=== PATIENT | female | born 1940 | race Caucasian/White ===

== ENCOUNTER 2018-02-01 03:20 | Emergency (ER) | payer MEDICARE, BC ==
[2018-02-01] MEDS ORDERED: KETOROLAC 30 MG/ML 1 ML VIAL IVP STA (03:39)
[2018-02-01] MEDS ORDERED: SODIUM CHLORIDE 0.9% 500 ML 500 ML IV STA (03:39)
[2018-02-01] MEDS ORDERED: MORPHINE SULFATE 2 MG/ML SYRINGE IVP STA (03:41)
[2018-02-01] MEDS ORDERED: ONDANSETRON 4 MG/2 ML VIAL IVP STA (03:41)
--- NOTE | 2018-02-01 03:43 | ED ---
General Adult HPI - General Chief complaint: Urogenital Stated complaint: Back pain Source: patient Mode of arrival: wheelchair Limitations: no limitations - History of Present Illness Initial comments: 77-year-old female patient presents to the emergency department today for evaluation of right flank pain. Patient states that the pain started earlier in the day however worsened this morning. The patient states the pain is a sharp stabbing pain. States it worsens with movement and when taking deep breaths. Denies any radiation of the pain to her abdomen. Denies any nausea, vomiting, constipation, diarrhea, hematuria, dysuria, urinary urgency. States that she does urinate frequently. Denies any history of similar pain or kidney stones. Patient denies any recent rash, fever, chills, shortness breath, chest pain, numbness, tingling, dizziness, weakness, headache, visual changes, or any other complaints. - Related Data Home Medications Medication Instructions Recorded Confirmed Albuterol Sulfate [Proair Hfa] 1 - 2 puff INHALATION RT-Q6H PRN 02/11/16 HYDROcodone/APAP 5-325MG [[place] 1 - 2 tab PO QID PRN 02/11/16 02/11/16 5-325] Levothyroxine Sodium 75 mcg PO QAM 02/11/16 02/11/16 Simvastatin 10 mg PO HS 02/11/16 02/11/16 Previous Rx's Medication Instructions Recorded Cephalexin [Keflex] 500 mg PO Q8HR #30 cap 02/01/18 Allergies Allergy/AdvReac Type Severity Reaction Status Date / Time No Known Allergies Allergy Verified 02/01/18 03:28 Review of Systems ROS Statement: Those systems with pertinent positive or pertinent negative responses have been documented in the HPI. ROS Other: All systems not noted in ROS Statement are negative. Past Medical History Past Medical History: Heart Failure, Hyperlipidemia, Hypertension, Pneumonia, Rheumatoid Arthritis (RA), Thyroid Disorder Additional Past Medical History / Comment(s): recent back sx(dec 2015) shortly after had post op inc infection- ecoli infection. , not taking meds for bp anymore,bronchitis,some incont of urine, back pain, pancreatitis History of Any Multi-Drug Resistant Organisms: None Reported Past Surgical History: Back Surgery, Cholecystectomy, Hysterectomy Additional Past Surgical History / Comment(s): colonoscopy,lt eye implant, d&c, nov 30 at [facility]-"has brackets and screws" l4-l5, thoracentesis, picc line since removed. Past Anesthesia/Blood Transfusion Reactions: No Reported Reaction Additional Past Anesthesia/Blood Transfusion Reaction / Comment(s): past blood trqansfusion-no reaction. Past Psychological History: Panic Disorder Smoking Status: Former smoker Past Alcohol Use History: None Reported Past Drug Use History: None Reported - Past Family History Father Family Medical History: Renal Disease Additional Family Medical History / Comment(s): kidney failure Mother Family Medical History: Cancer Additional Family Medical History / Comment(s): lung cancer General Exam Limitations: no limitations General appearance: alert, in no apparent distress, other (This is a well- developed, well-nourished elderly female patient in mild distress related to pain. Vital signs upon presentation are temperature 97.8F, pulse 85, respirations 19, blood pressure 172/84, pulse ox 95% on room air.) Eye exam: Present: normal appearance, PERRL, EOMI. Absent: scleral icterus, conjunctival injection, periorbital swelling ENT exam: Present: normal exam, normal oropharynx, mucous membranes moist Respiratory exam: Present: normal lung sounds bilaterally. Absent: respiratory distress, wheezes, rales, rhonchi, stridor Cardiovascular Exam: Present: regular rate, normal rhythm, normal heart sounds. Absent: systolic murmur, diastolic murmur, rubs, gallop, clicks GI/Abdominal exam: Present: soft, normal bowel sounds. Absent: distended, tenderness, guarding, rebound, rigid Back exam: Present: normal inspection. Absent: CVA tenderness (R), CVA tenderness (L) Neurological exam: Present: alert, oriented X3, CN II-XII intact Psychiatric exam: Present: normal affect, normal mood Skin exam: Present: warm, dry, intact, normal color. Absent: rash Course Vital Signs 02/01/18 03:23 Temperature 97.8 F Pulse Rate 85 Respiratory 19 Rate Blood Pressure 172/84 O2 Sat by Pulse 95 Oximetry Medical Decision Making - Medical Decision Making 77-year-old female patient presents to the emergency department today for complaints of right flank pain. Physical examination was relatively unremarkable. Abdomen was soft and nontender. Patient had no CVA tenderness. Vital signs are stable with no elevated temperature. Labs reviewed and did reveal mild elevated BUN at 27. Urinalysis showed a cloudy appearance with large leukocyte esterase, greater than 182 white blood cells, rare white blood cell clumps, many bacteria, 6 hyaline casts, and rare urine mucus. Is negative for blood and had only 2 red blood cells. Patient symptoms and lab findings are consistent with acute pyelonephritis. We'll administer Rocephin IV 2 g here in the department and discharged home on Keflex. She is instructed to follow-up with her primary care physician for recheck in 1-2 days. She is instructed to increase fluids. Return parameters were discussed in detail. She verbalizes understanding and agrees with this plan. - Lab Data Result diagrams: 02/01/18 04:00 02/01/18 04:00 Lab Results 02/01/18 02/01/18 02/01/18 Range/Units 04:00 04:00 04:00 WBC 7.3 (3.8-10.6) k/uL RBC 4.67 (3.80-5.40) m/uL Hgb 13.2 (11.4-16.0) gm/dL Hct 42.0 (34.0-46.0) % MCV 89.9 (80.0-100.0) fL MCH 28.2 (25.0-35.0) pg MCHC 31.3 (31.0-37.0) g/dL RDW 13.1 (11.5-15.5) % Plt Count 222 (150-450) k/uL Neutrophils % 60 % Lymphocytes % 25 % Monocytes % 9 % Eosinophils % 4 % Basophils % 0 % Neutrophils # 4.4 (1.3-7.7) k/uL Lymphocytes # 1.8 (1.0-4.8) k/uL Monocytes # 0.6 (0-1.0) k/uL Eosinophils # 0.3 (0-0.7) k/uL Basophils # 0.0 (0-0.2) k/uL Hypochromasia Slight Sodium 140 (137-145) mmol/L Potassium 4.4 (3.5-5.1) mmol/L Chloride 108 H (98-107) mmol/L Carbon Dioxide 25 (22-30) mmol/L Anion Gap 7 mmol/L BUN 27 H (7-17) mg/dL Creatinine 0.96 (0.52-1.04) mg/dL Est GFR (CKD-EPI)AfAm 66 (>60 ml/min/1.73 sqM) Est GFR (CKD-EPI)NonAf 57 (>60 ml/min/1.73 sqM) Glucose 107 H (74-99) mg/dL Calcium 9.2 (8.4-10.2) mg/dL Total Bilirubin 0.2 (0.2-1.3) mg/dL AST 42 H (14-36) U/L ALT 23 (9-52) U/L Alkaline Phosphatase 153 H (38-126) U/L Total Protein 7.2 (6.3-8.2) g/dL Albumin 3.7 (3.5-5.0) g/dL Amylase 74 (30-110) U/L Lipase 268 (23-300) U/L Urine Color Yellow Urine Appearance Cloudy H (Clear) Urine pH 6.0 (5.0-8.0) Ur Specific [place] 1.019 (1.001-1.035) Urine Protein Negative (Negative) Urine Glucose (UA) Negative (Negative) Urine Ketones Negative (Negative) Urine Blood Negative (Negative) Urine Nitrite Negative (Negative) Urine Bilirubin Negative (Negative) Urine Urobilinogen <2.0 (<2.0) mg/dL Ur Leukocyte Esterase Large H (Negative) Urine RBC 2 (0-5) /hpf Urine WBC >182 H (0-5) /hpf Urine WBC Clumps Rare H (None) /hpf Ur Squamous Epith Cells 1 (0-4) /hpf Urine Bacteria Many H (None) /hpf Hyaline Casts 6 H (0-2) /lpf Urine Mucus Rare H (None) /hpf Disposition Clinical Impression: Pyelonephritis Disposition: HOME SELF-CARE Condition: Good Instructions: Urinary Tract Infection in Women (ED), Kidney Infection (ED) Additional Instructions: Increase fluids. Take medications as directed. Follow-up with her primary care physician for recheck in 1-2 days. Return here immediately for any new, worsening, or concerning symptoms. Prescriptions: Cephalexin [Keflex] 500 mg PO Q8HR #30 cap Is patient prescribed a controlled substance at d/c from ED?: No Referrals: Arcadio Meeks DO [Primary Care Provider] - 1-2 days Time of Disposition: 05:18
[2018-02-01 04:19] LABS: Basophils % (A) 0 %; Eosinophils # (A) 0.3 k/uL (0-0.7); Eosinophils % (A) 4 %; HGB 13.2 gm/dL (11.4-16.0); Hypochromasia Slight; Lymphocytes # (A) 1.8 k/uL (1.0-4.8); Lymphocytes % (A) 25 %; MCH 28.2 pg (25.0-35.0); MCHC 31.3 g/dL (31.0-37.0); MCV 89.9 fL (80.0-100.0); Mean Platelet Volume 7.6; Monocytes # (A) 0.6 k/uL (0-1.0); Monocytes % (A) 9 %; Neutrophils # (A) 4.4 k/uL (1.3-7.7); Neutrophils % (A) 60 %; Platelet Count 222 k/uL (150-450); RBC 4.67 m/uL (3.80-5.40); RDW 13.1 % (11.5-15.5); WBC 7.3 k/uL (3.8-10.6)
[2018-02-01 04:28] LABS: Albumin 3.7 g/dL (3.5-5.0); Calcium 9.2 mg/dL (8.4-10.2); Potassium 4.4 mmol/L (3.5-5.1); Total Bilirubin 0.2 mg/dL (0.2-1.3); Total Protein 7.2 g/dL (6.3-8.2)
[2018-02-01 04:57] LABS: Appearance,Urine Cloudy (Clear); Bacteria,Urine Many /hpf; Bilirubin,Urine Negative (Negative); Blood,Urine Negative (Negative); Color,Urine Yellow; Glucose,Urine (UA) Negative (Negative); Hyaline Casts,Urine 6 /lpf (0-2); Ketones,Urine Negative (Negative); Leukocyte Esterase,Urine Large (Negative); Mucus,Urine Rare /hpf; Nitrite,Urine Negative (Negative); Protein,Urine Negative (Negative); RBC,Urine 2 /hpf (0-5); Specific Gravity,Urine 1.019 (1.001-1.035); Squamous Epithelial Cell,Urine 1 /hpf (0-4); Urobilinogen,Urine <2.0 mg/dL (<2.0); WBC,Urine >182 /hpf (0-5)
[2018-02-01] MEDS ORDERED: cefTRIAXone 2,000 MG in SODIUM CHLORIDE 0.9% 100 ML IVPB STA (05:17)
[2018-02-01 06:49] VITALS: BP 144/63; PULSE 63; RESP 20; TEMP 97
== END 2018-02-01 06:49 | disposition home or self-care (01) ==
LOC: EC 03:20
DX: N12 Tubulo-interstitial nephritis, not specified as acute or chronic (principal); R79.89 Other specified abnormal findings of blood chemistry; R82.998 Other abnormal findings in urine; E07.9 Disorder of thyroid, unspecified; E78.5 Hyperlipidemia, unspecified; Z87.891 Personal history of nicotine dependence; Z79.899 Other long term (current) drug therapy; Z87.01 Personal history of pneumonia (recurrent); Z98.890 Other specified postprocedural states
CPT/HCPCS: 99283; 96365; 96375 ×3; 96361 ×2; 36415; 80053; 82150; 83690; 85025; 81001; J2405; J0696; J1885; J2270

== ENCOUNTER 2018-02-01 20:54 | Inpatient (IN) | payer MEDICARE, BC ==
[2018-02-01] MEDS ORDERED: KETOROLAC 30 MG/ML 1 ML VIAL IVP STA (21:09)
[2018-02-01] MEDS ORDERED: SODIUM CHLORIDE 0.9% 1,000 ML IV STA (21:09)
[2018-02-01] MEDS ORDERED: MORPHINE SULFATE 2 MG/ML SYRINGE IVP STA (21:09)
[2018-02-01] MEDS ORDERED: ONDANSETRON 4 MG/2 ML VIAL IVP STA (21:09)
[2018-02-01] MEDS ORDERED: ACETAMINOPHEN TAB 325 MG TAB PO STA (21:10)
--- NOTE | 2018-02-01 21:16 | ED ---
Fever HPI - General Source: patient Mode of arrival: wheelchair Limitations: no limitations <Carito Elizalde - Last Filed: 02/02/18 01:27> <Lopez Hedrick - Last Filed: 02/10/18 08:27> - General Stated Complaint: fever - History of Present Illness Initial Comments: 77-year-old female since to the emergency department today for evaluation of fever and right flank pain. Patient was seen and evaluated here early this morning and diagnosed with pyelonephritis. Patient states that today the pain in her right flank has persisted and she is also developed a fever. Patient states she has taken one dose of the antibiotic at home; she did receive 2g Rocephin in the ED this morning. Patient states today she is also nauseated. She denies any dysuria, hematuria, urinary urgency but has been urinating frequently. She denies any vomiting, constipation, or diarrhea. States that she also developed a cough today. Denies any sputum production with this. Patient denies any recent rash, shortness breath, chest pain, numbness, tingling , dizziness, weakness, headache, visual changes, or any other complaints. (Carito Elizalde) - Related Data Home Medications Medication Instructions Recorded Confirmed Simvastatin 10 mg PO HS 02/11/16 02/01/18 Ferrous Sulfate [Iron] 650 mg PO DAILY 02/01/18 02/01/18 Magnesium Oxide 400 mg PO DAILY 02/01/18 02/01/18 Potassium 99 mg PO DAILY 02/01/18 02/01/18 Levothyroxine Sodium 100 mcg PO DAILY 02/04/18 02/04/18 Previous Rx's Medication Instructions Recorded Ciprofloxacin HCl [Cipro] 750 mg PO BID #14 tablet 02/04/18 Allergies Allergy/AdvReac Type Severity Reaction Status Date / Time No Known Allergies Allergy Verified 02/01/18 22:22 Review of Systems ROS Other: All systems not noted in ROS Statement are negative. <Carito Elizalde - Last Filed: 02/02/18 01:27> ROS Other: All systems not noted in ROS Statement are negative. <Lopez Hedrick - Last Filed: 02/10/18 08:27> ROS Statement: Those systems with pertinent positive or pertinent negative responses have been documented in the HPI. Past Medical History Past Medical History: Heart Failure, Hyperlipidemia, Hypertension, Pneumonia, Rheumatoid Arthritis (RA), Thyroid Disorder Additional Past Medical History / Comment(s): recent back sx(dec 2015) shortly after had post op inc infection- ecoli infection. , not taking meds for bp anymore,bronchitis,some incont of urine, back pain, pancreatitis History of Any Multi-Drug Resistant Organisms: None Reported Past Surgical History: Back Surgery, Cholecystectomy, Hysterectomy Additional Past Surgical History / Comment(s): colonoscopy,lt eye implant, d&c, nov 30 at [facility]-"has brackets and screws" l4-l5, thoracentesis, picc line since removed. Past Anesthesia/Blood Transfusion Reactions: No Reported Reaction Additional Past Anesthesia/Blood Transfusion Reaction / Comment(s): past blood trqansfusion-no reaction. Past Psychological History: Panic Disorder Smoking Status: Former smoker Past Alcohol Use History: None Reported Past Drug Use History: None Reported - Past Family History Father Family Medical History: Renal Disease Additional Family Medical History / Comment(s): kidney failure Mother Family Medical History: Cancer Additional Family Medical History / Comment(s): lung cancer <Carito Elizalde - Last Filed: 02/02/18 01:27> General Exam Limitations: no limitations General appearance: alert, in no apparent distress, other (This is a well- developed, well-nourished elderly female patient in mild distress related to pain. Vital signs upon presentation are temperature 101.4F, pulse 1:15, respirations 18, blood pressure 132/64, pulse ox 93% on room air.) Eye exam: Present: normal appearance, PERRL, EOMI. Absent: scleral icterus, conjunctival injection, periorbital swelling ENT exam: Present: normal exam, normal oropharynx, mucous membranes moist Respiratory exam: Present: normal lung sounds bilaterally. Absent: respiratory distress, wheezes, rales, rhonchi, stridor Cardiovascular Exam: Present: regular rate, normal rhythm, normal heart sounds. Absent: systolic murmur, diastolic murmur, rubs, gallop, clicks GI/Abdominal exam: Present: soft, normal bowel sounds. Absent: distended, tenderness, guarding, rebound, rigid Back exam: Present: normal inspection, CVA tenderness (R). Absent: CVA tenderness (L) Neurological exam: Present: alert, oriented X3, CN II-XII intact Psychiatric exam: Present: normal affect, normal mood Skin exam: Present: warm, dry, intact, normal color. Absent: rash <Carito Elizalde - Last Filed: 02/02/18 01:27> Vital Signs 02/01/18 02/01/18 02/02/18 20:59 22:56 00:57 Temperature 101.4 F H 100.1 F H 98.1 F Pulse Rate 115 H 94 74 Respiratory 18 18 18 Rate Blood Pressure 132/64 116/55 112/53 O2 Sat by Pulse 93 L 96 96 Oximetry 02/02/18 02:01 Temperature 97.3 F L Pulse Rate 73 Respiratory 16 Rate Blood Pressure 112/53 O2 Sat by Pulse 99 Oximetry Medical Decision Making - Lab Data Result diagrams: 02/01/18 21:34 02/01/18 21:34 - Radiology Data Radiology results: report reviewed <Carito Elizalde - Last Filed: 02/02/18 01:27> - Lab Data Result diagrams: 02/04/18 08:55 02/04/18 08:55 <Lopez Hedrick - Last Filed: 02/10/18 08:27> - Medical Decision Making 77-year-old female patient presented to the emergency department today for evaluation of fever and right flank pain. Patient was seen and evaluated here yesterday and had a grade 182 white blood cells as well as presence of bacteria and a urine. She was diagnosed with pyelonephritis given 2 g Rocephin here in the emergency department, and discharged home. Overnight patient's pain became worse and she developed a fever today so she reports presented. Physical examination did a reveals right CVA tenderness. We did repeat labs which did show an elevated white blood cell count at 12.2, elevated lipase at 577. We did perform ultrasound which showed no acute abnormalities. Given patient's development of fever and elevated lipase we will admit to the hospital for further evaluation. (Carito Elizalde) I saw this patient in conjunction with the physician seed laboratory assistant. I performed independent history and physical exam. Agree with case management. (Lopez Hedrick) - Lab Data Lab Results 02/01/18 02/01/18 02/01/18 Range/Units 21:34 21:34 21:34 WBC 12.2 H (3.8-10.6) k/uL RBC 4.68 (3.80-5.40) m/uL Hgb 12.9 (11.4-16.0) gm/dL Hct 43.3 (34.0-46.0) % MCV 92.7 (80.0-100.0) fL MCH 27.6 (25.0-35.0) pg MCHC 29.7 L (31.0-37.0) g/dL RDW 13.0 (11.5-15.5) % Plt Count 182 (150-450) k/uL Neutrophils % 92 % Lymphocytes % 3 % Monocytes % 3 % Eosinophils % 2 % Basophils % 0 % Neutrophils # 11.2 H (1.3-7.7) k/uL Lymphocytes # 0.3 L (1.0-4.8) k/uL Monocytes # 0.4 (0-1.0) k/uL Eosinophils # 0.2 (0-0.7) k/uL Basophils # 0.0 (0-0.2) k/uL Hypochromasia Moderate Sodium 137 (137-145) mmol/L Potassium 4.9 (3.5-5.1) mmol/L Chloride 109 H (98-107) mmol/L Carbon Dioxide 24 (22-30) mmol/L Anion Gap 4 mmol/L BUN 28 H (7-17) mg/dL Creatinine 0.82 (0.52-1.04) mg/dL Est GFR (CKD-EPI)AfAm 80 (>60 ml/min/1.73 sqM) Est GFR (CKD-EPI)NonAf 69 (>60 ml/min/1.73 sqM) Glucose 129 H (74-99) mg/dL Plasma Lactic Acid Néstor 0.9 (0.7-2.0) mmol/L Calcium 8.7 (8.4-10.2) mg/dL Total Bilirubin 0.4 (0.2-1.3) mg/dL AST 56 H (14-36) U/L ALT 36 (9-52) U/L Alkaline Phosphatase 158 H (38-126) U/L Total Protein 7.0 (6.3-8.2) g/dL Albumin 3.6 (3.5-5.0) g/dL Amylase 90 (30-110) U/L Lipase 577 H (23-300) U/L Urine Color Urine Appearance (Clear) Urine pH (5.0-8.0) Ur Specific [place] (1.001-1.035) Urine Protein (Negative) Urine Glucose (UA) (Negative) Urine Ketones (Negative) Urine Blood (Negative) Urine Nitrite (Negative) Urine Bilirubin (Negative) Urine Urobilinogen (<2.0) mg/dL Ur Leukocyte Esterase (Negative) Urine RBC (0-5) /hpf Urine WBC (0-5) /hpf Ur Squamous Epith Cells (0-4) /hpf Hyaline Casts (0-2) /lpf Urine Mucus (None) /hpf 02/01/18 Range/Units 22:10 WBC (3.8-10.6) k/uL RBC (3.80-5.40) m/uL Hgb (11.4-16.0) gm/dL Hct (34.0-46.0) % MCV (80.0-100.0) fL MCH (25.0-35.0) pg MCHC (31.0-37.0) g/dL RDW (11.5-15.5) % Plt Count (150-450) k/uL Neutrophils % % Lymphocytes % % Monocytes % % Eosinophils % % Basophils % % Neutrophils # (1.3-7.7) k/uL Lymphocytes # (1.0-4.8) k/uL Monocytes # (0-1.0) k/uL Eosinophils # (0-0.7) k/uL Basophils # (0-0.2) k/uL Hypochromasia Sodium (137-145) mmol/L Potassium (3.5-5.1) mmol/L Chloride (98-107) mmol/L Carbon Dioxide (22-30) mmol/L Anion Gap mmol/L BUN (7-17) mg/dL Creatinine (0.52-1.04) mg/dL Est GFR (CKD-EPI)AfAm (>60 ml/min/1.73 sqM) Est GFR (CKD-EPI)NonAf (>60 ml/min/1.73 sqM) Glucose (74-99) mg/dL Plasma Lactic Acid Néstor (0.7-2.0) mmol/L Calcium (8.4-10.2) mg/dL Total Bilirubin (0.2-1.3) mg/dL AST (14-36) U/L ALT (9-52) U/L Alkaline Phosphatase (38-126) U/L Total Protein (6.3-8.2) g/dL Albumin (3.5-5.0) g/dL Amylase (30-110) U/L Lipase (23-300) U/L Urine Color Light Yellow Urine Appearance Clear (Clear) Urine pH 6.5 (5.0-8.0) Ur Specific [place] 1.017 (1.001-1.035) Urine Protein Negative (Negative) Urine Glucose (UA) Negative (Negative) Urine Ketones 1+ H (Negative) Urine Blood Negative (Negative) Urine Nitrite Negative (Negative) Urine Bilirubin Negative (Negative) Urine Urobilinogen <2.0 (<2.0) mg/dL Ur Leukocyte Esterase Small H (Negative) Urine RBC 3 (0-5) /hpf Urine WBC 17 H (0-5) /hpf Ur Squamous Epith Cells <1 (0-4) /hpf Hyaline Casts 1 (0-2) /lpf Urine Mucus Rare H (None) /hpf - Radiology Data Ultrasound of the abdomen is obtained. Report was reviewed in its entirety. Impression by Dr. Walter shows cholecystectomy with no dilated ducts. Migraine renal cortical atrophy. No hydronephrosis. No evidence of Sam cast. Two-view x-ray of the chest was obtained. Report was reviewed in its entirety. Impression by Dr. Walter shows subsegmental atelectasis or scarring. There is clearing of the pleural reaction of the lateral left lung base compared to old exam. (Carito Elizalde) Disposition Decision to Admit Reason: Admit from EC Decision Date: 02/02/18 Decision Time: 01:28 <Carito Elizalde - Last Filed: 02/02/18 01:27> <Lopez Hedrick - Last Filed: 02/10/18 08:27> Clinical Impression: Pyelonephritis, Pancreatitis, Right flank pain Disposition: ADMITTED IP TO THIS [facility] Condition: Good
[2018-02-01 21:49] LABS: Basophils % (A) 0 %; Eosinophils # (A) 0.2 k/uL (0-0.7); Eosinophils % (A) 2 %; HCT 43.3 % (34.0-46.0); HGB 12.9 gm/dL (11.4-16.0); Hypochromasia Moderate; Lymphocytes # (A) 0.3 k/uL (1.0-4.8); Lymphocytes % (A) 3 %; MCH 27.6 pg (25.0-35.0); MCHC 29.7 g/dL (31.0-37.0); MCV 92.7 fL (80.0-100.0); Mean Platelet Volume 7.4; Monocytes # (A) 0.4 k/uL (0-1.0); Monocytes % (A) 3 %; Neutrophils # (A) 11.2 k/uL (1.3-7.7); Neutrophils % (A) 92 %; Platelet Count 182 k/uL (150-450); RBC 4.68 m/uL (3.80-5.40); WBC 12.2 k/uL (3.8-10.6)
[2018-02-01 22:11] LABS: Albumin 3.6 g/dL (3.5-5.0); Calcium 8.7 mg/dL (8.4-10.2); Total Bilirubin 0.4 mg/dL (0.2-1.3)
[2018-02-01 22:19] LABS: Potassium 4.9 mmol/L (3.5-5.1)
[2018-02-01 22:31] LABS: Appearance,Urine Clear (Clear); Bilirubin,Urine Negative (Negative); Blood,Urine Negative (Negative); Color,Urine Light Yellow; Glucose,Urine (UA) Negative (Negative); Hyaline Casts,Urine 1 /lpf (0-2); Ketones,Urine 1+ (Negative); Leukocyte Esterase,Urine Small (Negative); Mucus,Urine Rare /hpf; Nitrite,Urine Negative (Negative); PH, Urine 6.5 (5.0-8.0); Protein,Urine Negative (Negative); RBC,Urine 3 /hpf (0-5); Specific Gravity,Urine 1.017 (1.001-1.035); Squamous Epithelial Cell,Urine <1 /hpf (0-4); Urobilinogen,Urine <2.0 mg/dL (<2.0); WBC,Urine 17 /hpf (0-5)
--- NOTE | 2018-02-01 23:07 | XR ---
EXAMINATION TYPE: XR chest 2V DATE OF EXAM: 02/01/2018 COMPARISON: 02/11/2016 HISTORY: Fever TECHNIQUE: Frontal and lateral views of the chest are obtained. FINDINGS: There is no heart failure nor confluent pneumonic infiltrate. There are small linear areas of density in both lung modi. There is no pleural effusion. Bony thorax is intact. IMPRESSION: Subsegmental atelectasis or scarring. There is clearing of the pleural reaction at the l ateral left lung base compared to old exam.
--- NOTE | 2018-02-02 00:03 | US ---
EXAMINATION TYPE: US abdomen limited DATE OF EXAM: 02/01/2018 COMPARISON: NONE CLINICAL HISTORY: Pain. RUQ pain elevated lipase cholecystectomy. EXAM MEASUREMENTS: Liver Length: 13.7 cm Gallbladder Wall: Surgically absent cm CBD: 1.0 cm Right Kidney: 8.9 x 4.4 x 3.5 cm Pancreas: Tail obscured by overlying bowel gas Liver: wnl Gallbladder: Surgically absent Evidence for sonographic Medrano's sign: No CBD: wnl Right Kidney: Cortical thinning question parapelvic cyst vs. dilated renal pelvis measuring 1.4 x 1. 4 x 1.9 cm. IMPRESSION: Cholecystectomy. No dilated ducts. Mild right renal cortical atrophy. No hydronephrosis. No evidence of pancreatic mass.
[2018-02-02] MEDS ORDERED: ONDANSETRON 4 MG/2 ML VIAL IVP PRN (01:22)
[2018-02-02] MEDS ORDERED: NALOXONE 0.4 MG/ML 1 ML VIAL IV PRN (01:22)
[2018-02-02] MEDS: MORPHINE SULFATE 4 MG/ML SYRINGE IV PRN ×2 (02:40→09:29)
[2018-02-02] MEDS: SODIUM CHLORIDE 0.9% 1,000 ML IV SCH ×2 (02:44→15:56)
[2018-02-02] MEDS: ACETAMINOPHEN TAB 325 MG TAB PO PRN ×3 (05:47→22:43)
[2018-02-02] MEDS ORDERED: NON-FORMULARY DRUG (Potassium [Potassium] 99 MG) PO SCH (09:00)
[2018-02-02] MEDS: FERROUS SULFATE 325 MG TAB PO SCH (13:09)
[2018-02-02] MEDS: MAGNESIUM OXIDE 400 MG TAB PO SCH (13:10)
[2018-02-02] MEDS: ATORVASTATIN 10 MG TAB PO SCH (22:43)
--- NOTE | 2018-02-03 00:10 | HP ---
HISTORY AND PHYSICAL DATE OF SERVICE: 02/02/2018. PRESENTING COMPLAINT: Right flank pain. HISTORY OF PRESENTING COMPLAINT: This is a very pleasant 77-year-old patient of Dr. Meeks. Chronic stable medical conditions include hyperlipidemia, rheumatoid arthritis, hypothyroid, urine incontinence, congestive heart failure. The patient presented yesterday morning to the ER with right flank pain. There was no obvious nausea or vomiting. Did not have a fever. Was sent home with some antibiotics. Came back again feeling more pain in the right flank with a very infected-appearing urine. Admitted with acute pyelonephritis. The patient's appetite had gone down, feeling weak and tired, but no obvious urine symptoms. REVIEW OF SYSTEMS: CONSTITUTIONAL: Febrile. HEENT: Decreased hearing. RESPIRATORY: None. CARDIOVASCULAR: None. GASTROINTESTINAL: As above. GENITOURINARY: None. MUSCULOSKELETAL: Pain in different joints. DERMATOLOGICAL, HEMATOLOGIC, LYMPHATIC: None. PSYCHIATRY: None. NEUROLOGIC: None. PAST MEDICAL HISTORY: Congestive heart failure, hyperlipidemia, rheumatoid arthritis, hypothyroid, back surgery, urinary incontinence. PAST SURGICAL HISTORY: Back surgery, cholecystectomy, hysterectomy, left eye implant, . SOCIAL HISTORY: The patient had back surgery at [facility] in 2015. No smoking, no alcohol. . FAMILY HISTORY: Renal failure. HOME MEDICATIONS: 1. Simvastatin 10 mg at bedtime. 2. Potassium 99 mg p.o. daily. 3. Magnesium oxide 400 mg p.o. daily. 4. Iron 650 mg p.o. daily. 5. Keflex 100 mg every 8 from the ER. ALLERGIES: None. PHYSICAL EXAMINATION: T-max 101.4 last night, pulse 115, respiratory rate 18, blood pressure 132/64, pulse ox 93 percent room air. GENERAL APPEARANCE: Average built, lying in bed, tired-appearing. EYES: Pupils equal. Conjunctivae normal. HEENT: External appearance of nose and ears normal. Oral cavity normal. NECK: JVD not raised. Mass not palpable. Respiratory effort normal. LUNGS: Clear. CARDIOVASCULAR: 1st and 2nd heart sounds normal. No edema. ABDOMEN: Soft, nontender. Liver and spleen not palpable. LYMPHATIC: No lymph nodes palpable in the neck or axillae. PSYCHIATRY: Alert and oriented x3. Mood and affect normal. NEUROLOGIC: Pupils equal. Cranial nerves grossly intact. Power and sensation grossly intact. The patient had some tenderness in the right renal angle. INVESTIGATIONS: White count 12.2, hemoglobin 12.9, potassium 4.9, BUN 20, creatinine 0.82. UA positive for leukocyte esterase, WBC. Urine culture pending. Abdominal ultrasound showing some dilated right pelvis. ASSESSMENT: 1. Acute right pyelonephritis causing sepsis, present on admission. 2. Chronic congestive heart failure, ejection fraction not known. 3. Hyperlipidemia. 4. Chronic rheumatoid arthritis. 5. Hypothyroidism. PLAN: Patient is started on IV ceftriaxone and IV fluids. Home medications resumed. Care was discussed with the patient. Slight bump in lipase is not from acute pancreatitis. MMODL / IJN: [id number] /
[2018-02-03] MEDS: SODIUM CHLORIDE 0.9% 1,000 ML IV SCH ×2 (05:43→18:15)
[2018-02-03 09:49] LABS: Basophils % (A) 0 %; Eosinophils # (A) 0.2 k/uL (0-0.7); Eosinophils % (A) 3 %; HCT 38.4 % (34.0-46.0); HGB 11.6 gm/dL (11.4-16.0); Hypochromasia Moderate; Lymphocytes # (A) 0.5 k/uL (1.0-4.8); Lymphocytes % (A) 8 %; MCH 27.6 pg (25.0-35.0); MCHC 30.3 g/dL (31.0-37.0); MCV 90.9 fL (80.0-100.0); Mean Platelet Volume 7.7; Monocytes # (A) 0.3 k/uL (0-1.0); Monocytes % (A) 5 %; Neutrophils # (A) 4.7 k/uL (1.3-7.7); Neutrophils % (A) 82 %; Platelet Count 141 k/uL (150-450); RBC 4.22 m/uL (3.80-5.40); RDW 13.1 % (11.5-15.5); WBC 5.7 k/uL (3.8-10.6)
[2018-02-03 10:36] LABS: ALT 42 U/L (9-52); AST 56 U/L (14-36); Albumin 2.7 g/dL (3.5-5.0); Alkaline Phosphatase 152 U/L (38-126); Anion Gap 7 mmol/L; Blood Urea Nitrogen 17 mg/dL (7-17); Calcium 8.2 mg/dL (8.4-10.2); Carbon Dioxide 21 mmol/L (22-30); Chloride 111 mmol/L (98-107); Glucose 101 mg/dL (74-99); Lipase 1819 U/L (23-300); Potassium 4.2 mmol/L (3.5-5.1); Sodium 139 mmol/L (137-145); Total Bilirubin 0.2 mg/dL (0.2-1.3); Total Protein 5.8 g/dL (6.3-8.2)
[2018-02-03] MEDS: FERROUS SULFATE 325 MG TAB PO SCH (11:53)
[2018-02-03] MEDS: MAGNESIUM OXIDE 400 MG TAB PO SCH (11:53)
[2018-02-03] MEDS: MORPHINE SULFATE 4 MG/ML SYRINGE IV PRN (14:11)
[2018-02-03] MEDS: ATORVASTATIN 10 MG TAB PO SCH (20:42)
--- NOTE | 2018-02-03 22:35 | PN ---
PROGRESS NOTE DATE OF SERVICE: 02/03/2018 PRESENTING COMPLAINT: Right flank pain. INTERVAL HISTORY: This patient presented with acute pyelonephritis. Abdominal pain is better. Tolerating a diet. Doing better, but patient did have a fever late last night. Patient has been up to the bathroom. REVIEW OF SYSTEMS: Done for constitutional, cardiovascular, GI, pulmonary; relevant findings as above. CURRENT MEDICATIONS: Current medications include IV ceftriaxone. PHYSICAL EXAMINATION: T-max 101.3 last night. Afebrile this morning. Pulse 76, respiration 16, blood pressure 134/58, pulse ox 92% on room air. GENERAL APPEARANCE: Lying in bed. Comfortable. EYES: Pupils equal. Conjunctivae normal. HEENT: External appearance of nose and ears normal. Oral cavity normal. NECK: JVD not raised. Mass not palpable. RESPIRATORY: Effort normal. Lungs are clear. CARDIOVASCULAR: First and second sounds normal. No edema. ABDOMEN: Soft, non-tender. Liver and spleen not palpable. PSYCHIATRY: Alert and oriented x3. Mood and affect normal. INVESTIGATIONS: White count 5.7, potassium 4.2. BUN and creatinine are normal. Urine culture negative. Blood culture has been negative. ASSESSMENT: 1. Acute right pyelonephritis causing sepsis, present on admission, with clinical improvement. Patient did spike a fever last night. Given her age, will give another 24 hours of IV antibiotic. Otherwise, clinically patient does appear to look better. 2. Chronic congestive heart failure, ejection fraction not known. 3. Hyperlipidemia. 4. Chronic rheumatoid arthritis. 5. Hypothyroidism. 6. Hyperlipasemia with no clinical evidence of pancreatitis. 7. Hypoalbuminemia as an acute phase reactant. PLAN: Continue with IV ceftriaxone and IV fluids for another 24 hours. Do expect hopefully patient to be home by tomorrow. MMODL / IJN: [id number] /
[2018-02-04] MEDS: SODIUM CHLORIDE 0.9% 1,000 ML IV SCH (08:11)
[2018-02-04 09:31] LABS: Basophils % (A) 0 %; Eosinophils # (A) 0.3 k/uL (0-0.7); Eosinophils % (A) 4 %; HCT 37.4 % (34.0-46.0); HGB 12.2 gm/dL (11.4-16.0); Lymphocytes # (A) 0.6 k/uL (1.0-4.8); Lymphocytes % (A) 9 %; MCH 28.5 pg (25.0-35.0); MCHC 32.6 g/dL (31.0-37.0); MCV 87.5 fL (80.0-100.0); Mean Platelet Volume 7.6; Monocytes # (A) 0.4 k/uL (0-1.0); Monocytes % (A) 6 %; Neutrophils # (A) 5.2 k/uL (1.3-7.7); Neutrophils % (A) 80 %; Platelet Count 168 k/uL (150-450); RBC 4.28 m/uL (3.80-5.40); WBC 6.6 k/uL (3.8-10.6)
[2018-02-04 10:00] LABS: Anion Gap 7 mmol/L; Blood Urea Nitrogen 12 mg/dL (7-17); Calcium 8.3 mg/dL (8.4-10.2); Carbon Dioxide 23 mmol/L (22-30); Chloride 109 mmol/L (98-107); Glucose 129 mg/dL (74-99); Potassium 3.9 mmol/L (3.5-5.1); Sodium 139 mmol/L (137-145)
[2018-02-04] MEDS ORDERED: LEVOTHYROXINE 100 MCG TAB PO SCH (11:15)
[2018-02-04] MEDS: FERROUS SULFATE 325 MG TAB PO SCH (12:01)
[2018-02-04] MEDS: MAGNESIUM OXIDE 400 MG TAB PO SCH (12:01)
[2018-02-04 15:11] VITALS: BP 142/64; PULSE 80; RESP 16; TEMP 98.2
[2018-02-05] MEDS ORDERED: LEVOTHYROXINE 100 MCG TAB PO SCH (06:30)
--- NOTE | 2018-02-05 08:43 | DS ---
DISCHARGE SUMMARY DATE OF ADMISSION: February 02, 2018. DATE OF DISCHARGE: 02/04/2018 FINAL DIAGNOSES: 1. Acute right pyelonephritis causing sepsis, present on admission with clinical improvement. 2. Chronic congestive heart failure, ejection fraction not known. 3. Hyperlipidemia. 4. Chronic rheumatoid arthritis. 5. Hypothyroidism. 6. Hyperlipidemia with no clinical evidence of pancreatitis. 7. Hypoalbuminemia as an acute phase reactant. HOSPITAL COURSE: This patient presented with septic picture, right renal angle tenderness. Doing better by the time of discharge. Fevers have settled down. White count has normalized. Cultures were negative. EXAM: Lungs improved air entry. Minimal right flank tenderness. DISCHARGE MEDICATIONS: 1. Simvastatin 10 mg q.h.s. 2. Iron 650 mg p.o. daily. 3. Magnesium oxide 400 mg p.o. daily. 4. Potassium 99 mg p.o. daily. 5. Cipro 750 mg p.o. b.i.d., 14 tablets. 6. Synthroid 100 mcg p.o. daily. The patient is taking increase fluid intake. FOLLOWUP: Follow up with Dr. Meeks in one week. MMMANDOL / TRAMN: [id number] /
== END 2018-02-04 16:25 | disposition home or self-care (01) | DRG 872 ==
LOC: EC 20:54 → 4MS4W 02-02 01:11
PROVIDERS: ADMIT Hospitalist; ATTEND Hospitalist
DX: A41.9 Sepsis, unspecified organism (principal); N10 Acute pyelonephritis; I11.0 Hypertensive heart disease with heart failure; I50.9 Heart failure, unspecified; E88.09 Other disorders of plasma-protein metabolism, not elsewhere classified; E03.9 Hypothyroidism, unspecified; R32 Unspecified urinary incontinence; M06.9 Rheumatoid arthritis, unspecified; E78.5 Hyperlipidemia, unspecified; F41.0 Panic disorder [episodic paroxysmal anxiety]; R79.89 Other specified abnormal findings of blood chemistry; Z79.890 Hormone replacement therapy; Z79.899 Other long term (current) drug therapy; Z87.01 Personal history of pneumonia (recurrent); Z90.710 Acquired absence of both cervix and uterus; Z90.49 Acquired absence of other specified parts of digestive tract; Z87.891 Personal history of nicotine dependence; Z84.1 Family history of disorders of kidney and ureter; Z80.1 Family history of malignant neoplasm of trachea, bronchus and lung
CPT/HCPCS: 36415; 71046; 76705; 80048; 80053; 81001; 82150; 83605; 83690; 85025; 87040; 87086; 96361; 96374; 96375; 99285

== ENCOUNTER 2019-02-15 09:38 | Emergency (ER) | payer MEDICARE, BC ==
[2019-02-15 09:44] VITALS: RESP 16; TEMP 98.1
[2019-02-15] MEDS ORDERED: MECLIZINE 12.5 MG TAB PO STA (10:24)
--- NOTE | 2019-02-15 10:26 | ED ---
General Adult HPI - General Chief complaint: Dizziness Stated complaint: Dizziness, Vomiting Time Seen by Provider: 02/15/19 09:52 Source: patient Mode of arrival: wheelchair Limitations: no limitations - History of Present Illness Initial comments: Dictation was produced using [employer] dictation software. please excuse any grammatical, word or spelling errors. Chief Complaint: 78-year-old female past medical history of thyroid disease presents with vertiginous symptoms. History of Present Illness: 78-year-old female presents with chief complaint of vertiginous symptoms. Patient states that her symptoms began yesterday. Patient reports that she's never had anything like this before. She complains of some mild hearing changes to the left ear. Patient complains of sensation of the room spinning. She states her symptoms are worse when standing from a supine position. Patient still however able to ambulate. She feels sick to her stomach and feels that she lost throughout. No diarrhea. Patient has no pain c omplaints at this time. The ROS documented in this emergency department record has been reviewed and confirmed by me. Those systems with pertinent positive or negative responses have been documented in the HPI. All other systems are other negative and/or noncontributory. PHYSICAL EXAM: General Impression: Alert and oriented x3, not in acute distress HEENT: Normocephalic atraumatic, extra-ocular movements intact, pupils equal and reactive to light bilaterally, mucous membranes moist. Cardiovascular: Heart regular rate and rhythm, S1&S2 audible, no murmurs, rubs or gallops Chest: Lungs clear to auscultation bilaterally, no rhonchi, no wheeze, no rales Abdomen: Bowel sounds present, abdomen soft, non-tender, non-distended, no organomegaly Musculoskeletal: Pulses present and equal in all extremities, no peripheral edema Motor: no focal deficits noted Neurological: CN II-XII grossly intact, no focal motor or sensory deficits noted, left beating nystagmus with fast phase to the left Skin: Intact with no visualized rashes Psych: Normal affect and mood ED course: 78-year-old female presents with clinical presentation consistent with benign positional paroxysmal vertigo. Vital signs upon arrival are within acceptable limits. Patient has no high-risk features to suggest central cause of vertigo. Abdomen evaluation obtained. CBC, metabolic panel is grossly unremarkable. Urinalysis shows 40 white blood cells. There is some concern for mild urinary tract infection. Patient reevaluated at bedside with improvement of symptoms after administration of antiemetics and Antivert. Patient be discharged with prescription for Antivert and antibiotics for urinary tract infection. Pending urine cultures. Patient advised follow-up with PCP. Return for discussed. EKG interpretation: Ventricular rate 70, normal sinus rhythm, CT interval 136, QS 82, QTc 437. No CT prolongation, no QTC prolongation, no ST or T-wave changes noted. Overall, this EKG is unremarkable - Related Data Home Medications Medication Instructions Recorded Confirmed Ferrous Sulfate [Iron] 650 mg PO DAILY 02/01/18 02/15/19 Magnesium Oxide 400 mg PO DAILY 02/01/18 02/15/19 Potassium 99 mg PO DAILY 02/01/18 02/15/19 Levothyroxine Sodium 100 mcg PO DAILY 02/04/18 02/15/19 Multivitamins, Thera [Multivitamin 1 tab PO DAILY 02/15/19 02/15/19 (formulary)] Previous Rx's Medication Instructions Recorded Meclizine [Antivert] 25 mg PO TID PRN #15 tab 02/15/19 Nitrofurantoin Monohyd/M-Cryst 100 mg PO Q12HR 7 Days #14 cap 02/15/19 [Macrobid] Allergies Allergy/AdvReac Type Severity Reaction Status Date / Time No Known Allergies Allergy Verified 02/15/19 10:24 Review of Systems ROS Statement: Those systems with pertinent positive or pertinent negative responses have been documented in the HPI. ROS Other: All systems not noted in ROS Statement are negative. Past Medical History Past Medical History: Heart Failure, Hyperlipidemia, Hypertension, Pneumonia, Rheumatoid Arthritis (RA), Thyroid Disorder Additional Past Medical History / Comment(s): recent back sx(dec 2015) shortly after had post op inc infection- ecoli infection. , not taking meds for bp anymore,bronchitis,some incont of urine, back pain, pancreatitis History of Any Multi-Drug Resistant Organisms: None Reported Past Surgical History: Back Surgery, Cholecystectomy, Hysterectomy Additional Past Surgical History / Comment(s): colonoscopy,lt eye implant, d&c, nov 30 at [facility]-"has brackets and screws" l4-l5, thoracentesis, picc line since removed. Past Anesthesia/Blood Transfusion Reactions: No Reported Reaction Additional Past Anesthesia/Blood Transfusion Reaction / Comment(s): past blood trqansfusion-no reaction. Past Psychological History: Panic Disorder Smoking Status: Former smoker Past Alcohol Use History: None Reported Past Drug Use History: None Reported - Past Family History Father Family Medical History: Renal Disease Additional Family Medical History / Comment(s): kidney failure Mother Family Medical History: Cancer Additional Family Medical History / Comment(s): lung cancer General Exam Limitations: no limitations Course Vital Signs 02/15/19 09:40 Temperature 98.1 F Pulse Rate 84 Respiratory 16 Rate Blood Pressure 155/72 O2 Sat by Pulse 97 Oximetry Medical Decision Making - Lab Data Result diagrams: 02/15/19 10:25 02/15/19 10:25 Lab Results 02/15/19 02/15/19 02/15/19 Range/Units 10:04 10:25 10:25 WBC 7.1 (3.8-10.6) k/uL RBC 3.25 L (3.80-5.40) m/uL Hgb 9.1 L (11.4-16.0) gm/dL Hct 29.9 L (34.0-46.0) % MCV 91.9 (80.0-100.0) fL MCH 28.0 (25.0-35.0) pg MCHC 30.5 L (31.0-37.0) g/dL RDW 15.2 (11.5-15.5) % Plt Count 309 (150-450) k/uL Neutrophils % 66 % Lymphocytes % 19 % Monocytes % 9 % Eosinophils % 2 % Basophils % 1 % Neutrophils # 4.7 (1.3-7.7) k/uL Lymphocytes # 1.4 (1.0-4.8) k/uL Monocytes # 0.6 (0-1.0) k/uL Eosinophils # 0.2 (0-0.7) k/uL Basophils # 0.1 (0-0.2) k/uL Hypochromasia Marked Poikilocytosis Slight Sodium 139 (137-145) mmol/L Potassium 5.2 H (3.5-5.1) mmol/L Chloride 108 H (98-107) mmol/L Carbon Dioxide 22 (22-30) mmol/L Anion Gap 9 mmol/L BUN 22 H (7-17) mg/dL Creatinine 0.88 (0.52-1.04) mg/dL Est GFR (CKD-EPI)AfAm 73 (>60 ml/min/1.73 sqM) Est GFR (CKD-EPI)NonAf 64 (>60 ml/min/1.73 sqM) Glucose 114 H (74-99) mg/dL Calcium 8.8 (8.4-10.2) mg/dL Magnesium 2.0 (1.6-2.3) mg/dL Total Bilirubin 0.4 (0.2-1.3) mg/dL AST 42 H (14-36) U/L ALT 18 (9-52) U/L Alkaline Phosphatase 126 (38-126) U/L Total Protein 7.5 (6.3-8.2) g/dL Albumin 3.8 (3.5-5.0) g/dL Urine Color Yellow Urine Appearance Cloudy H (Clear) Urine pH 7.5 (5.0-8.0) Ur Specific [place] 1.021 (1.001-1.035) Urine Protein Trace H (Negative) Urine Glucose (UA) Negative (Negative) Urine Ketones Negative (Negative) Urine Blood Negative (Negative) Urine Nitrite Negative (Negative) Urine Bilirubin Negative (Negative) Urine Urobilinogen <2.0 (<2.0) mg/dL Ur Leukocyte Esterase Small H (Negative) Urine RBC 1 (0-5) /hpf Urine WBC 14 H (0-5) /hpf Ur Squamous Epith Cells 1 (0-4) /hpf Amorphous Sediment Occasional H (None) /hpf Urine Bacteria Few H (None) /hpf Urine Mucus Rare H (None) /hpf Disposition Clinical Impression: UTI (urinary tract infection), Vertigo Disposition: HOME SELF-CARE Condition: Good Instructions (If sedation given, give patient instructions): Dizziness (ED) Prescriptions: Meclizine [Antivert] 25 mg PO TID PRN #15 tab PRN Reason: dizziness Nitrofurantoin Monohyd/M-Cryst [Macrobid] 100 mg PO Q12HR 7 Days #14 cap Is patient prescribed a controlled substance at d/c from ED?: No Referrals: Arcadio Meeks DO [Primary Care Provider] - 1-2 days Time of Disposition: 11:39
[2019-02-15] MEDS ORDERED: METOCLOPRAMIDE 5 MG/ML 2 ML VIAL IVP STA (10:29)
[2019-02-15 10:43] LABS: Amorphous Sediment,Urine Occasional /hpf; Appearance,Urine Cloudy (Clear); Bacteria,Urine Few /hpf; Bilirubin,Urine Negative (Negative); Blood,Urine Negative (Negative); Color,Urine Yellow; Glucose,Urine (UA) Negative (Negative); Ketones,Urine Negative (Negative); Leukocyte Esterase,Urine Small (Negative); Mucus,Urine Rare /hpf; Nitrite,Urine Negative (Negative); PH, Urine 7.5 (5.0-8.0); Protein,Urine Trace (Negative); RBC,Urine 1 /hpf (0-5); Specific Gravity,Urine 1.021 (1.001-1.035); Squamous Epithelial Cell,Urine 1 /hpf (0-4); Urobilinogen,Urine <2.0 mg/dL (<2.0)
--- NOTE | 2019-02-15 11:14 | XR ---
EXAMINATION TYPE: XR chest 1V portable DATE OF EXAM: 02/15/2019 COMPARISON: 02/01/2018 HISTORY: Shortness of breath and weakness TECHNIQUE: Single frontal view of the chest is obtained. FINDINGS: New trace left pleural effusion blunts the costophrenic angle. Hazy bibasilar opacities ar e chronic and may represent atelectasis or interstitial lung disease. Biapical pleural parenchymal sc arring is also chronic. No new focal consolidation, pleural effusion or pneumothorax. Diffuse osseous demineralization. IMPRESSION: Chronic bibasilar opacities may represent atelectasis or component of interstitial lung disease. No acute process seen.
[2019-02-15 11:21] LABS: Basophils # (A) 0.1 k/uL (0-0.2); Basophils % (A) 1 %; Eosinophils # (A) 0.2 k/uL (0-0.7); Eosinophils % (A) 2 %; HCT 29.9 % (34.0-46.0); HGB 9.1 gm/dL (11.4-16.0); Hypochromasia Marked; Lymphocytes # (A) 1.4 k/uL (1.0-4.8); Lymphocytes % (A) 19 %; MCHC 30.5 g/dL (31.0-37.0); MCV 91.9 fL (80.0-100.0); Mean Platelet Volume 6.3; Monocytes # (A) 0.6 k/uL (0-1.0); Monocytes % (A) 9 %; Neutrophils # (A) 4.7 k/uL (1.3-7.7); Neutrophils % (A) 66 %; Platelet Count 309 k/uL (150-450); Poikilocytosis Slight; RBC 3.25 m/uL (3.80-5.40); RDW 15.2 % (11.5-15.5); WBC 7.1 k/uL (3.8-10.6)
[2019-02-15 11:23] LABS: Albumin 3.8 g/dL (3.5-5.0); Calcium 8.8 mg/dL (8.4-10.2); Total Bilirubin 0.4 mg/dL (0.2-1.3); Total Protein 7.5 g/dL (6.3-8.2)
[2019-02-15 11:31] LABS: Potassium 5.2 mmol/L (3.5-5.1)
[2019-02-15 11:53] VITALS: BP 137/82; PULSE 62
== END 2019-02-15 11:52 | disposition home or self-care (01) ==
LOC: EC 09:38
DX: R42 Dizziness and giddiness (principal); N39.0 Urinary tract infection, site not specified; R11.10 Vomiting, unspecified; H93.8X2 Other specified disorders of left ear; E07.9 Disorder of thyroid, unspecified; Z87.891 Personal history of nicotine dependence; Z90.49 Acquired absence of other specified parts of digestive tract; Z90.710 Acquired absence of both cervix and uterus; Z79.890 Hormone replacement therapy
CPT/HCPCS: 99284; 96374; 36415; 93005; 80053; 83735; 85025; 81001; 87086; 71045; J2765; 87077; 87186

== ENCOUNTER 2020-01-28 11:36 | Emergency (ER) | payer MEDICARE, BC ==
[2020-01-28 12:02] VITALS: RESP 18; TEMP 97.9
--- NOTE | 2020-01-28 12:48 | XR ---
EXAMINATION TYPE: XR chest 2V DATE OF EXAM: 01/28/2020 COMPARISON: Chest x-ray February 15, 2019. CT 2016. HISTORY: Fall injury with chest and left-sided rib pain. TECHNIQUE: Frontal and lateral views of the chest are obtained. FINDINGS: There is chronic parenchymal changes bilaterally without suspicious new focal airspace op[place] or pneumothorax seen. There is tiny left pleural effusion. The cardiac silhouette size is upper limits of normal currently with atherosclerotic aortic knob. The osseous structures are intact. Ch olecystectomy clips redemonstrated. IMPRESSION: Chronic parenchymal changes with tiny left pleural effusion.
[2020-01-28] MEDS ORDERED: MORPHINE SULFATE 4 MG/ML SYRINGE IM STA (13:57)
--- NOTE | 2020-01-28 14:37 | ED ---
General Adult HPI - General Chief complaint: Back Pain/Injury Stated complaint: recent fall, rib pain Time Seen by Provider: 01/28/20 13:32 Source: patient, RN notes reviewed, old records reviewed Mode of arrival: ambulatory Limitations: no limitations - History of Present Illness Initial comments: 79-year-old male presents to the emergency department today for evaluation for complaint of fall on Tuesday in the bathroom and landing on the side of the tub with her left ribs. She denies any abdominal pain. Ports pain with movement and with taking a deep breath. Patient states that she has no chest pain or significant shortness of breath. Patient states that it difficult for her to find a physician. Patient states that she has small bruises. She's been taking Tylenol and Motrin and did take one [place]. - Related Data Home Medications Medication Instructions Recorded Confirmed Ferrous Sulfate [Iron] 650 mg PO DAILY 02/01/18 02/15/19 Magnesium Oxide 400 mg PO DAILY 02/01/18 02/15/19 Potassium 99 mg PO DAILY 02/01/18 02/15/19 Levothyroxine Sodium 100 mcg PO DAILY 02/04/18 02/15/19 Multivitamins, Thera [Multivitamin 1 tab PO DAILY 02/15/19 02/15/19 (formulary)] Previous Rx's Medication Instructions Recorded Meclizine [Antivert] 25 mg PO TID PRN #15 tab 02/15/19 Nitrofurantoin Monohyd/M-Cryst 100 mg PO Q12HR 7 Days #14 cap 02/15/19 [Macrobid] Ibuprofen [Motrin] 600 mg PO Q8HR PRN #12 tab 01/28/20 traMADol HCL [Ultram] 50 mg PO Q6HR PRN 3 Days #12 tab 01/28/20 Allergies Allergy/AdvReac Type Severity Reaction Status Date / Time No Known Allergies Allergy Verified 01/28/20 12:03 Review of Systems ROS Statement: Those systems with pertinent positive or pertinent negative responses have been documented in the HPI. ROS Other: All systems not noted in ROS Statement are negative. Past Medical History Past Medical History: Heart Failure, Hyperlipidemia, Hypertension, Pneumonia, Rheumatoid Arthritis (RA), Thyroid Disorder Additional Past Medical History / Comment(s): recent back sx(dec 2015) shortly after had post op inc infection- ecoli infection. , not taking meds for bp anymore,bronchitis,some incont of urine, back pain, pancreatitis History of Any Multi-Drug Resistant Organisms: None Reported Past Surgical History: Back Surgery, Cholecystectomy, Hysterectomy Additional Past Surgical History / Comment(s): colonoscopy,lt eye implant, d&c, nov 30 at [facility]-"has brackets and screws" l4-l5, thoracentesis, picc line since removed. Past Anesthesia/Blood Transfusion Reactions: No Reported Reaction Additional Past Anesthesia/Blood Transfusion Reaction / Comment(s): past blood trqansfusion-no reaction. Past Psychological History: Panic Disorder Smoking Status: Never smoker Past Alcohol Use History: None Reported Past Drug Use History: None Reported - Past Family History Father Family Medical History: Renal Disease Additional Family Medical History / Comment(s): kidney failure Mother Family Medical History: Cancer Additional Family Medical History / Comment(s): lung cancer General Exam - General Exam Comments Initial Comments: 79-year-old female. Alert and oriented. No distress. Limitations: no limitations General appearance: alert, in no apparent distress Head exam: Present: atraumatic, normocephalic, normal inspection Eye exam: Present: normal appearance, PERRL, EOMI. Absent: scleral icterus, conjunctival injection, periorbital swelling ENT exam: Present: normal exam, mucous membranes moist Neck exam: Present: normal inspection. Absent: tenderness, meningismus, lymphadenopathy Respiratory exam: Present: normal lung sounds bilaterally, other (linear bruise over L 7th rib area). Absent: respiratory distress, wheezes, rales, rhonchi, stridor Cardiovascular Exam: Present: regular rate, normal rhythm, normal heart sounds. Absent: systolic murmur, diastolic murmur, rubs, gallop, clicks GI/Abdominal exam: Present: soft, normal bowel sounds. Absent: distended, tenderness, guarding, rebound, rigid Extremities exam: Present: normal inspection, full ROM, normal capillary refill. Absent: tenderness, pedal edema, joint swelling, calf tenderness Back exam: Present: normal inspection Neurological exam: Present: alert, oriented X3, CN II-XII intact Psychiatric exam: Present: normal affect, normal mood Skin exam: Present: warm, dry, intact, normal color. Absent: rash Course Vital Signs 01/28/20 01/28/20 11:59 14:51 Temperature 97.9 F Pulse Rate 77 72 Respiratory 18 18 Rate Blood Pressure 149/84 148/64 O2 Sat by Pulse 97 98 Oximetry Medical Decision Making - Medical Decision Making 79-year-old female presents return today for fall and Tuesday landing on her left ribs on the edge of the tub. She has a bruise over her seventh rib. No abdominal tenderness or other bruising. She denies a change in urination or other complaints. Patient's chest x-ray shows chronic brachial changes in tiny left pleural effusion. Did offer further imaging including CAT scan Patient declined states she was told she should not have any further CAT scans and temperature chest. Patient has oxygen has been satting well and she has no significant complaints. Patient was given incentive spirometer and will discharge Patient with a short course of pain medicine for her rib contusion. Advised following up with PCP and she doesn't appointment next week. - Radiology Data Radiology results: report reviewed Chronic parenchymal changes with tiny left pleural effusion. Disposition Clinical Impression: Fall, Rib contusion Disposition: HOME SELF-CARE Condition: Good Instructions (If sedation given, give patient instructions): Rib Contusion (ED) Additional Instructions: Patient advised to use anti-inflammatory medication and pain medicine. Using an incentive spirometer another to help promote breathing. Return to the ED if any alarming signs or symptoms occur. Follow-up with PCP. Prescriptions: Ibuprofen [Motrin] 600 mg PO Q8HR PRN #12 tab PRN Reason: Pain traMADol HCL [Ultram] 50 mg PO Q6HR PRN 3 Days #12 tab PRN Reason: Pain Is patient prescribed a controlled substance at d/c from ED?: No Referrals: Arcadio Meeks DO [Primary Care Provider] - 1-2 days Time of Disposition: 14:30
[2020-01-28 14:52] VITALS: BP 148/64; PULSE 72
== END 2020-01-28 14:50 | disposition home or self-care (01) ==
LOC: EC 11:36
DX: S20.219A Contusion of unspecified front wall of thorax, initial encounter (principal); J90 Pleural effusion, not elsewhere classified; I11.0 Hypertensive heart disease with heart failure; I50.9 Heart failure, unspecified; E07.9 Disorder of thyroid, unspecified; Z98.890 Other specified postprocedural states; Z53.20 Procedure and treatment not carried out because of patient's decision for unspecified reasons; Z79.890 Hormone replacement therapy; Z79.899 Other long term (current) drug therapy; W01.10XA Fall on same level from slipping, tripping and stumbling with subsequent striking against unspecified object, initial encounter; Y92.002 Bathroom of unspecified non-institutional (private) residence as the place of occurrence of the external cause
CPT/HCPCS: 71046; 96372; 99284; J2270

== ENCOUNTER 2023-10-28 01:57 | Observation (INO) | payer MEDICARE, BC ==
[2023-10-28] MEDS ORDERED: NITROGLYCERIN SL TABS 0.4 MG TAB SUBLINGUAL PRN (02:18)
[2023-10-28] MEDS: ASPIRIN 81 MG PO STA (02:24)
[2023-10-28 02:47] LABS: Anisocytosis Slight; Basophils % (A) 1 %; Eosinophils # (A) 0.4 k/uL (0-0.7); Eosinophils % (A) 5 %; HCT 34.5 % (34.0-46.0); HGB 10.4 gm/dL (11.4-16.0); Hypochromasia Moderate; Lymphocytes # (A) 2.2 k/uL (1.0-4.8); Lymphocytes % (A) 28 %; MCH 24.9 pg (25.0-35.0); Mean Platelet Volume 7.8; Monocytes % (A) 13 %; Neutrophils # (A) 3.9 k/uL (1.3-7.7); Neutrophils % (A) 50 %; Platelet Count 280 k/uL (150-450); RBC 4.16 m/uL (3.80-5.40); RDW 17.9 % (11.5-15.5); WBC 7.7 k/uL (3.8-10.6)
[2023-10-28 02:54] LABS: INR 0.9 (<1.2); Partial Thromboplastin Time 26.1 sec (22.0-30.0); Prothrombin Time 10.4 sec (10.0-12.5)
[2023-10-28 03:02] LABS: ALT 11 U/L (4-34); AST 24 U/L (14-36); African American GFR (CKD) 77 (>60 ml/min/1.73 sqM); Albumin 3.9 g/dL (3.5-5.0); Alkaline Phosphatase 76 U/L (38-126); Anion Gap 7 mmol/L; Blood Urea Nitrogen 19 mg/dL (7-17); Carbon Dioxide 22 mmol/L (22-30); Chloride 107 mmol/L (98-107); Glucose 106 mg/dL (74-99); Lipase 195 U/L (23-300); Non-African American GFR(CKD) 67 (>60 ml/min/1.73 sqM); Potassium 4.2 mmol/L (3.5-5.1); Sodium 136 mmol/L (137-145); Total Bilirubin 0.3 mg/dL (0.2-1.3); Total Protein 6.8 g/dL (6.3-8.2)
[2023-10-28] MEDS ORDERED: NALOXONE 0.4 MG/ML 1 ML VIAL IV PRN (03:35)
[2023-10-28] MEDS ORDERED: ACETAMINOPHEN TAB 325 MG TAB PO PRN (03:35)
--- NOTE | 2023-10-28 03:44 | ED ---
Chest Pain HPI - General Chief Complaint: Chest Pain Stated Complaint: chest pain Time Seen by Provider: 10/28/23 02:06 Source: patient Mode of arrival: wheelchair Limitations: no limitations - History of Present Illness Initial Comments: 82-year-old female presenting with chief complaint of chest pain. History of CHF, hyperlipidemia, hypertension Chest pain started around 10 PM right before she went to bed. She woke up tonight and was still experiencing pain. Pain is a pressure-like sensation in the center of her chest. Denies any increase shortness of breath. No radiation of the pain. No nausea or vomiting. No dizziness or headache. No diaphoresis. No cough, congestion, sore throat, fever. Patient is a non-smoker. - Related Data Home Medications Medication Instructions Recorded Confirmed Ferrous Sulfate [Iron] 650 mg PO DAILY 02/01/18 02/15/19 Magnesium Oxide 400 mg PO DAILY 02/01/18 02/15/19 Potassium 99 mg PO DAILY 02/01/18 02/15/19 Levothyroxine Sodium 100 mcg PO DAILY 02/04/18 02/15/19 Multivitamins, Thera [Multivitamin 1 tab PO DAILY 02/15/19 02/15/19 (formulary)] Previous Rx's Medication Instructions Recorded Meclizine [Antivert] 25 mg PO TID PRN #15 tab 02/15/19 Nitrofurantoin Monohyd/M-Cryst 100 mg PO Q12HR 7 Days #14 cap 02/15/19 [Macrobid] Ibuprofen [Motrin] 600 mg PO Q8HR PRN #12 tab 01/28/20 traMADol HCL [Ultram] 50 mg PO Q6HR PRN 3 Days #12 tab 01/28/20 Allergies Allergy/AdvReac Type Severity Reaction Status Date / Time No Known Allergies Allergy Verified 10/28/23 01:59 Review of Systems ROS Statement: Those systems with pertinent positive or pertinent negative responses have been documented in the HPI. ROS Other: All systems not noted in ROS Statement are negative. Past Medical History Past Medical History: Heart Failure, Hyperlipidemia, Hypertension, Pneumonia, Rheumatoid Arthritis (RA), Thyroid Disorder Additional Past Medical History / Comment(s): recent back sx(dec 2015) shortly after had post op inc infection- ecoli infection. , not taking meds for bp anymore,bronchitis,some incont of urine, back pain, pancreatitis History of Any Multi-Drug Resistant Organisms: None Reported Past Surgical History: Back Surgery, Cholecystectomy, Hysterectomy Additional Past Surgical History / Comment(s): colonoscopy,lt eye implant, d&c, nov 30 at [facility]-"has brackets and screws" l4-l5, thoracentesis, picc line since removed. Past Anesthesia/Blood Transfusion Reactions: No Reported Reaction Additional Past Anesthesia/Blood Transfusion Reaction / Comment(s): past blood trqansfusion-no reaction. Past Psychological History: Panic Disorder Smoking Status: Never smoker Past Alcohol Use History: None Reported Past Drug Use History: None Reported - Past Family History Father Family Medical History: Renal Disease Additional Family Medical History / Comment(s): kidney failure Mother Family Medical History: Cancer Additional Family Medical History / Comment(s): lung cancer General Exam Limitations: no limitations General appearance: alert, in no apparent distress Head exam: Present: atraumatic, normocephalic Eye exam: Present: normal appearance, EOMI Neck exam: Present: normal inspection. Absent: meningismus Respiratory exam: Present: normal lung sounds bilaterally. Absent: respiratory distress, wheezes, rales, rhonchi, stridor Cardiovascular Exam: Present: regular rate, normal rhythm, normal heart sounds. Absent: systolic murmur, diastolic murmur, rubs, gallop, clicks Extremities exam: Absent: pedal edema Neurological exam: Present: alert, oriented X3 Psychiatric exam: Present: normal affect, normal mood Skin exam: Present: normal color Course Vital Signs 10/28/23 01:59 Temperature 98.1 F Pulse Rate 76 Respiratory 16 Rate Blood Pressure 128/65 O2 Sat by Pulse 93 L Oximetry Chest Pain MDM - MDM Was pt. sent in by a medical professional or institution (, PA, LEADERSHIP DEVELOPMENT MANAGER, urgent care, hospital, or retirement...) When possible be specific @ -No Did you speak to anyone other than the patient for history (EMS, parent, family, police, friend...)? What history was obtained from this source @ -No Did you review nursing and triage notes (agree or disagree)? Why? @ -I reviewed and agree with nursing and triage notes Were old charts reviewed (outside hosp., previous admission, EMS record, old EKG, old radiological studies, urgent care reports/EKG's, retirement records)? Report findings @ -No old charts were reviewed Differential Diagnosis (chest pain, altered mental status, abdominal pain women, abdominal pain men, vaginal bleeding, weakness, fever, dyspnea, syncope, headache, dizziness, GI bleed, back pain, seizure, CVA, palpatations, mental health, musculoskeletal)? @ -[facility] Differential Chest Pain: Stable Angina, Unstable Angina, STEMI, NSTEMI Aortic Dissection, Pneumothorax, Musculoskeletal, Esophageal Spasm GERD, Cholecystitis, Pancreatitis, Zoster This is not meant to be an all-inclusive list. EKG interpreted by me (3pts min.). @ -EKG shows sinus rhythm ventricular rate 70. OH interval 150. QRS 93. QT 406. QTc 426. No ST deviation. X-rays interpreted by me (1pt min.). @ -Preliminary reading of chest x-ray shows cardiomegaly with no acute process. Formal report is pending. Preliminary read of elbow x-ray shows no obvious fracture or dislocation, formal report is pending. CT interpreted by me (1pt min.). @ -None done U/S interpreted by me (1pt. min.). @ -None done What testing was considered but not performed or refused? (CT, X-rays, U/S, labs)? Why? @ -None What meds were considered but not given or refused? Why? @ -None Did you discuss the management of the patient with other professionals (professionals i.e. , PA, LEADERSHIP DEVELOPMENT MANAGER, lab, RT, psych nurse, transition social worker, load tester, teacher, strike warfare/missile systems officer, outpatient case manager)? Give summary @ -My attending spoke with Dr. Short accepted admission. Was smoking cessation discussed for >3mins.? @ -No Was critical care preformed (if so, how long)? @ -No Were there social determinants of health that impacted care today? How? (Homelessness, low income, unemployed, alcoholism, drug addiction, transportation, low edu. Level, literacy, decrease access to med. care, residential, rehab)? @ -No Was there de-escalation of care discussed even if they declined (Discuss DNR or withdrawal of care, Hospice)? DNR status @ -No What co-morbidities impacted this encounter? (DM, HTN, Smoking, COPD, CAD, Cancer, CVA, ARF, Chemo, Hep., AIDS, mental health diagnosis, sleep apnea, morbid obesity)? @ -CHF, hyperlipidemia, hypertension Was patient admitted / discharged? Hospital course, mention meds given and route, prescriptions, significant lab abnormalities, going to OR and other pertinent info. @ -82-year-old female presenting with chief complaint of chest pain that started this evening. History and physical exam are conducted. Negative troponin. EKG shows no ST deviation. Patient will be admitted for observation with serial troponins and evaluation by cardiology. She is agreeable with this plan. I discussed this case my attending Dr. Fontenot. Undiagnosed new problem with uncertain prognosis? @ -No Drug Therapy requiring intensive monitoring for toxicity (Heparin, Nitro, Insulin, Cardizem)? @ -No Were any procedures done? @ -No Diagnosis/symptom? @ -Chest pain Acute, or Chronic, or Acute on Chronic? @ -Acute Uncomplicated (without systemic symptoms) or Complicated (systemic symptoms)? @ -Complicated Side effects of treatment? @ -No Exacerbation, Progression, or Severe Exacerbation? @ -No Poses a threat to life or bodily function? How? (Chest pain, [place], [place], pneumonia, PE, COPD, DKA, ARF, appy, cholecystitis, CVA, Diverticulitis, Homicidal, Suicidal, threat to staff... and all critical care pts) @ -Yes Disposition Clinical Impression: Chest pain Disposition: ADMITTED IP TO THIS HOSP Condition: Fair Referrals: Arcadio Meeks DO [Primary Care Provider] - 1-2 days Time of Disposition: 03:37
--- NOTE | 2023-10-28 07:24 | XR ---
EXAMINATION TYPE: XR chest 2V DATE OF EXAM: 10/28/2023 COMPARISON: Prior chest x-ray January 28, 2020 HISTORY: Chest pain TECHNIQUE: Frontal and lateral views of the chest are obtained. FINDINGS: There is no focal air space opacity, pleural effusion, or pneumothorax seen. The cardiac silhouette size is upper limits of normal. The osseous structures are intact. Cholecystectomy clips are redemonstrated. IMPRESSION: No acute pulmonary process.
--- NOTE | 2023-10-28 07:24 | XR ---
EXAMINATION TYPE: XR elbow complete LT DATE OF EXAM: 10/28/2023 CLINICAL HISTORY: Pain TECHNIQUE: Frontal, lateral and oblique images of the left elbow are obtained. COMPARISON: None FINDINGS: There is no acute fracture/dislocation evident in the left elbow. No abnormal fat pad sig ns are seen. The overlying soft tissue appears unremarkable. IMPRESSION: Unremarkable study.
[2023-10-28] MEDS ORDERED: AMINOPHYLLINE 500 MG/20 ML VIAL IV PRN (08:56)
[2023-10-28] MEDS ORDERED: CAFFEINE CITRATE 60 MG/3 ML VIAL IV PRN (08:56)
[2023-10-28] MEDS ORDERED: REGADENOSON 0.4 MG/5 ML SYRINGE IV PRN (08:56)
[2023-10-28] MEDS ORDERED: DOBUTamine DRIP for NUC MED 500 MG in DEXTROSE/WATER 1 250ML.BAG IV PRN (09:03)
--- NOTE | 2023-10-28 10:27 | P.CRDCN ---
History of Present Illness Consult date: 10/28/23 Consult reason: chest pain History of present illness: This is an 82-year-old female patient with past medical history of hypertension hyperlipidemia, hypothyroidism. We have been asked to evaluate the patient for chest pain. Patient presented to the emergency center due to chest pain starting last evening about 10 PM before she went to bed. She woke up during the night and was still having pain, pressure-like sensation in the center of h er chest. No radiation of the pain. No nausea or vomiting. Patient is a non- smoker. Patient thinks that she had a stress test done here at [facility] 2 to 3 years ago but unable to locate the report. She is willing to undergo stress test today. Blood pressure 155/69, heart rate 66, pulse ox 95% on room air. EKG: Sinus rhythm with no acute ST-T wave changes. Chest x-ray: No acute process Left elbow x-ray: Unremarkable Laboratory studies: WBC 7.7, hemoglobin 10.4. Sodium 136, potassium 4.2, BUN 19 creatinine 0.82. Troponin negative x 2. Home cardiac medications: Amlodipine 10 mg daily, also on levothyroxine 75 mcg daily. Lexiscan Cardiolite stress test performed in the office on 11/18/2015 revealed unremarkable Lexiscan stress test. Normal myocardial perfusion with normal ejection fraction of 65%. No evidence of stress induced ischemia. Echocardiogram performed in the office on 11/17/2015 revealed normal LV size and normal function. Trileaflet aortic valve. Mild mitral regurgitation. Moderate tricuspid regurgitation. Mild pulmonic regurgitation. Review Of Systems: At the time of my exam: CONSTITUTIONAL: Denies fever or chills. HEENT: Denies blurred vision, vision changes, or eye pain. Denies hemoptysis CARDIOVASCULAR: Denies chest pain. Denies orthopnea. Denies PND. Denies palpitations RESPIRATORY: Denies shortness of breath. GASTROINTESTINAL: Denies abdominal pain. Denies nausea or vomiting. HEMATOLOGIC: Denies bleeding disorders. GENITOURINARY: Denies any blood in urine. SKIN: Denies puritis. Denies rash. Physical examination: Gen: This is an 82-year-old female in no acute distress VS: reviewed HEENT: Head is atraumatic, normocephalic. Pupils equal, round. Sclerae is anicteric. NECK: Supple. No JVD. LUNGS: Clear to auscultation. No wheezes or rhonchi. No intercostal retractions. HEART: Regular rate and rhythm. No murmur. ABDOMEN: Soft No tenderness. EXTREMITIES: No pedal edema. No calf tenderness. NEUROLOGICAL: Patient is awake, alert and oriented x3. Assessment: Atypical chest pain, acute coronary syndrome has been ruled out with negative t roponins Hypertension Hyperlipidemia Hypothyroidism Plan: Resume patient's home cardiac medications Schedule patient for dobutamine stress echo today Obtain 2-D echocardiogram and Doppler study to assess cardiac structure and function If testing is unremarkable, patient is cleared for discharge and may follow-up in the office with Dr. Corrales in 1 to 2 weeks. Thank you kindly for this consultation. Nurse practitioner note has been reviewed, I agree with documented findings and plan of care. Patient was seen and examined. Past Medical History Past Medical History: Heart Failure, Hyperlipidemia, Hypertension, Pneumonia, Rheumatoid Arthritis (RA), Thyroid Disorder Additional Past Medical History / Comment(s): recent back sx(dec 2015) shortly after had post op inc infection- ecoli infection. , not taking meds for bp anymore,bronchitis,some incont of urine, back pain, pancreatitis History of Any Multi-Drug Resistant Organisms: None Reported Past Surgical History: Back Surgery, Cholecystectomy, Hysterectomy Additional Past Surgical History / Comment(s): colonoscopy,lt eye implant, d&c, nov 30 at [facility]-"has brackets and screws" l4-l5, thoracentesis, picc line since removed. Past Anesthesia/Blood Transfusion Reactions: No Reported Reaction Additional Past Anesthesia/Blood Transfusion Reaction / Comment(s): past blood trqansfusion-no reaction. Past Psychological History: Panic Disorder Smoking Status: Never smoker Past Alcohol Use History: None Reported Past Drug Use History: None Reported - Past Family History Father Family Medical History: Renal Disease Additional Family Medical History / Comment(s): kidney failure Mother Family Medical History: Cancer Additional Family Medical History / Comment(s): lung cancer Medications and Allergies Home Medications Medication Instructions Recorded Confirmed Type HYDROcodone/APAP 5-325MG [[place] 1 tab PO DAILY PRN 10/28/23 10/28/23 History 5-325] Levothyroxine Sodium [Synthroid] 75 mcg PO DAILY 10/28/23 10/28/23 History Pregabalin [Lyrica] 75 mg PO BID 10/28/23 10/28/23 History Sertraline [Zoloft] 25 mg PO DAILY 10/28/23 10/28/23 History amLODIPine [Norvasc] 10 mg PO HS 10/28/23 10/28/23 History Allergies Allergy/AdvReac Type Severity Reaction Status Date / Time No Known Allergies Allergy Verified 10/28/23 07:09 Physical Exam Vitals: Vital Signs Temp Pulse Pulse Resp BP BP Pulse Ox 10/28/23 07:46 97.8 F 66 17 155/69 95 10/28/23 05:29 60 14 132/57 93 L 10/28/23 04:12 60 17 128/57 92 L 10/28/23 01:59 98.1 F 76 16 128/65 93 L Intake and Output 10/27/23 10/28/23 10/28/23 22:59 06:59 14:59 Other: Weight 58.967 kg Results 10/28/23 02:10 10/28/23 02:10 Cardiac Enzymes 10/28/23 10/28/23 10/28/23 Range/Units 02:10 02:10 05:32 AST 24 (14-36) U/L Troponin I <0.012 <0.012 (0.000-0.034) ng/mL Coagulation 10/28/23 Range/Units 02:10 PT 10.4 (10.0-12.5) sec APTT 26.1 (22.0-30.0) sec CBC 10/28/23 Range/Units 02:10 WBC 7.7 (3.8-10.6) k/uL RBC 4.16 (3.80-5.40) m/uL Hgb 10.4 L (11.4-16.0) gm/dL Hct 34.5 (34.0-46.0) % Plt Count 280 (150-450) k/uL Comprehensive Metabolic Panel 10/28/23 Range/Units 02:10 Sodium 136 L (137-145) mmol/L Potassium 4.2 (3.5-5.1) mmol/L Chloride 107 (98-107) mmol/L Carbon Dioxide 22 (22-30) mmol/L BUN 19 H (7-17) mg/dL Creatinine 0.82 (0.52-1.04) mg/dL Glucose 106 H (74-99) mg/dL Calcium 9.0 (8.4-10.2) mg/dL AST 24 (14-36) U/L ALT 11 (4-34) U/L Alkaline Phosphatase 76 (38-126) U/L Total Protein 6.8 (6.3-8.2) g/dL Albumin 3.9 (3.5-5.0) g/dL Current Medications Generic Name Dose Route Start Last Admin Trade Name Freq PRN Reason Stop Dose Admin Acetaminophen 650 mg 10/28/23 03:35 Acetaminophen Tab 325 Mg Tab PO Q6HR PRN Mild Pain or Fever > 100.5 Hydrocodone Bitart/Acetaminophen 1 each 10/28/23 09:52 Hydrocodone/Apap 5-325mg 1 Each Tab PO DAILY PRN Pain Aminophylline 100 mg 10/28/23 08:56 Aminophylline 500 Mg/20 Ml Vial IV 10/28/23 12:56 ONCE PRN Patient Response Amlodipine Besylate 10 mg 10/28/23 21:00 Amlodipine 10 Mg Tab PO HS PJ Caffeine Citrate 60 mg 10/28/23 08:56 Caffeine Citrate 60 Mg/3 Ml Vial IV 10/28/23 12:56 ONCE PRN Patient Response Dobutamine HCl/Dextrose 500 mg 250 mls @ 17.69 mls/hr 10/28/23 09:03 / IV Solution IV 10/28/23 13:04 .[id number] PRN Per Protocol Protocol 10 MCG/KG/MIN Levothyroxine Sodium 75 mcg 10/28/23 10:00 Levothyroxine 75 Mcg Tab PO DAILY PJ Naloxone HCl 0.2 mg 10/28/23 03:35 Naloxone 0.4 Mg/Ml 1 Ml Vial IV Q2M PRN Opioid Reversal Nitroglycerin 0.4 mg 10/28/23 02:18 Nitroglycerin Sl Tabs 0.4 Mg Tab SUBLINGUAL Q5M PRN Chest Pain Pregabalin 75 mg 10/28/23 10:00 Pregabalin 75 Mg Cap PO BID PJ Sertraline HCl 25 mg 10/28/23 10:00 Sertraline 25 Mg Tab PO DAILY PJ Intake and Output 10/27/23 10/28/23 10/28/23 22:59 06:59 14:59 Other: Weight 58.967 kg 10/28/23 02:10 10/28/23 02:10
[2023-10-28] MEDS: SERTRALINE 25 MG TAB PO SCH (11:15)
[2023-10-28] MEDS: PREGABALIN 75 MG CAP PO SCH (11:16)
[2023-10-28] MEDS: LEVOTHYROXINE 75 MCG TAB PO SCH (11:16)
--- NOTE | 2023-10-28 13:49 | CA ---
Transthoracic Echo Report Name: Tyesha Peterson Age: 82 Gender: F : 1940 Exam Date: 10/28/2023 09:56 Exam Location: [place] [facility] Ht (in): 60 Wt (lb): 130 Ordering Physician: Tra Corrales MD ([id number]) Attending/Referring Phys: Hose Seamer Flakita Merritt RDCS Procedure CPT: Indications: LVF Cardiac Hx: Technical Quality: Good Contrast 1: Total Dose (mL): Contrast 2: Total Dose (mL): MEASUREMENTS (Male / Female) Normal Values 2D ECHO LV Diastolic Diameter PLAX 4.5 cm 4.2 - 5.9 / 3.9 - 5.3 cm LV Systolic Diameter PLAX 3.2 cm IVS Diastolic Thickness 1.0 cm 0.6 - 1.0 / 0.6 - 0.9 cm LVPW Diastolic Thickness 1.0 cm 0.6 - 1.0 / 0.6 - 0.9 cm LV Relative Wall Thickness 0.4 RV Internal Dim ED PLAX 2.9 cm LA Systolic Diameter LX 3.6 cm 3.0 - 4.0 / 2.7 - 3.8 cm LV Diastolic Volume MOD BP 54.9 cm??? 67 - 155 / 56 - 104 cm??? LV Systolic Volume MOD BP 18.8 cm??? 22 - 58 / 19 - 49 cm??? LV Ejection Fraction MOD BP 65.8 % >= 55 % LV Cardiac Index MOD BP 2356.3 cm???/min???m??? LV Diastolic Volume MOD 4C 68.0 cm??? LV Systolic Volume MOD 4C 21.2 cm??? LV Ejection Fraction MOD 4C 68.8 % LV Cardiac Index MOD 4C 3052.7 cm???/min???m??? LV Diastolic Length 4C 6.5 cm LV Systolic Length 4C 5.6 cm LV Diastolic Volume MOD 2C 42.7 cm??? LV Systolic Volume MOD 2C 16.5 cm??? LV Ejection Fraction MOD 2C 61.3 % LV Cardiac Index MOD 2C 1705.5 cm???/min???m??? LV Diastolic Length 2C 6.2 cm LV Systolic Length 2C 5.2 cm LA Volume 56.5 cm??? 18 - 58 / 22 - 52 cm??? LA Volume Index 35.4 cm???/m??? 16 - 28 cm???/m??? M-MODE Aortic Root Diameter MM 2.7 cm AV Cusp Separation MM 1.3 cm DOPPLER AV Peak Velocity 134.8 cm/s AV Peak Gradient 7.3 mmHg MV Area PHT 2.9 cm??? Mitral E Point Velocity 96.2 cm/s Mitral A Point Velocity 110.1 cm/s Mitral E to A Ratio 0.9 MV Deceleration Time 262.4 ms TR Peak Velocity 261.6 cm/s TR Peak Gradient 27.4 mmHg Right Ventricular Systolic Press 31.8 mmHg FINDINGS Left Ventricle Left ventricular ejection fraction is estimated at 55-60 %. Left ventricular cavity size normal. Mildly increased posterior wall thickness. No obvious regional wall motion abnormality Right Ventricle Normal right ventricular size. Right ventricular systolic pressure within normal limits. Right Atrium Normal right atrial size. Left Atrium Mildly increased left atrial volume. Mildly increased left atrial area. Mitral Valve Mitral valve thickened. Moderate mitral annular calcification. Mild mitral regurgitation. Aortic Valve Trileaflet aortic valve. No aortic valve stenosis or regurgitation. Tricuspid Valve Structurally normal tricuspid valve. Mild tricuspid regurgitation. Pulmonic Valve Structurally normal pulmonic valve. Trace pulmonic regurgitation. Pericardium No pericardial effusion. No pleural effusion. Aorta Normal size aortic root and proximal ascending aorta. CONCLUSIONS Left ventricular ejection fraction is estimated at 55-60 %. No obvious regional wall motion abnormality Normal LV cavity size and wall thickness Normal RV size and systolic function Mitral annular calcification with mild MR RVSP estimated at 31 mm Previewed by: Dr Tra Corrales (Electronically Signed) Final Date: 28 October 2023 13:48
[2023-10-28 14:31] VITALS: BP 145/68; PULSE 70; RESP 16; TEMP 97.7
--- NOTE | 2023-10-28 15:35 | P.HPIM ---
History of Present Illness H&P Date: 10/28/23 Chief Complaint: Chest pain This is a pleasant 82-year-old patient who follows with Dr. Meeks. Chronic stable medical conditions include hypertension, hyperlipidemia, rheumatoid arthritis, hypothyroid urine incontinence, chronic back pain. Around 10:30 PM last night she developed some central chest pressure. Going to the back. [place] a bit tired. No shortness of breath. Lasted for 3 to 4 hours. She came to the ER. Was given aspirin. No pain this morning. No prior cardiac history. Normally uses a cane or a walker to get around. Review of systems: GEN.: Tired EYES: None HEENT: None NECK: None RESPIRATORY: None CARDIOVASCULAR: As above GASTROINTESTINAL: None GENITOURINARY: Urine incontinence MUSCULOSKELETAL: Joint pains LYMPHATICS: None HEMATOLOGICAL: None PSYCHIATRY: None NEUROLOGICAL: None Social history: . Does use a cane or a walker. No smoking. No alcohol. Physical examination: VITAL SIGNS 97.8, 66, 17, 155/69, 95% room air GENERAL: BMI 25.4, reclining bed awake. EYES: Pupils equal. Conjunctiva gustavo l. HEENT: External appearance of nose and ears normal, oral cavity grossly normal. NECK: JVD not raised; masses not palpable. HEART: First and second heart sounds are normal; no edema. LUNGS: Respiratory rate normal; clear to auscultation. ABDOMEN: Soft, nontender, liver spleen not palpable, no masses palpable. PSYCH: Alert and oriented x3; mood and affect gustavo l. MUSCULOSKELETAL:No Clubbing/cyanosis;muscles-grossly intact. OA NEUROLOGICAL: Cranial nerves grossly intact; no facial asymmetry, power and sensation grossly intact. LYMPHATICS: No lymph nodes palpable in the axilla and neck INVESTIGATIONS, reviewed in the clinical context: 2D echocardiogram: EF 55 to 60%. October 27: White count 7.7 hemoglobin 10.4 platelets 280 potassium 4.2 BUN 19 creatinine 0.82 Troponin I x 3 less than 0.012 lipase 195 EKG tracing personally reviewed by me-normal sinus rhythm. Chest x-ray film personally reviewed by me-unremarkable Assessment and plan: -Anterior chest wall pain. Cardiac risk factors include hypertension, age Troponins negative. Telemetry. Cardiology following. Stress test ordered. -Hypothyroid Synthroid 75 mcg a day -Depression Zoloft 25 mg a day -Essential hypertension Amlodipine 10 mg nightly -Chronic arthritis [place] as needed -Full code Care was discussed with the patient at the bedside. Questions answered. Past Medical History Past Medical History: Heart Failure, Hyperlipidemia, Hypertension, Pneumonia, Rheumatoid Arthritis (RA), Thyroid Disorder Additional Past Medical History / Comment(s): recent back sx(dec 2015) shortly after had post op inc infection- ecoli infection. , not taking meds for bp anymore,bronchitis,some incont of urine, back pain, pancreatitis History of Any Multi-Drug Resistant Organisms: None Reported Past Surgical History: Back Surgery, Cholecystectomy, Hysterectomy Additional Past Surgical History / Comment(s): colonoscopy,lt eye implant, d&c, nov 30 at [facility]-"has brackets and screws" l4-l5, thoracentesis, picc line since removed. Past Anesthesia/Blood Transfusion Reactions: No Reported Reaction Additional Past Anesthesia/Blood Transfusion Reaction / Comment(s): past blood trqansfusion-no reaction. Past Psychological History: Panic Disorder Smoking Status: Never smoker Past Alcohol Use History: None Reported Past Drug Use History: None Reported - Past Family History Father Family Medical History: Renal Disease Additional Family Medical History / Comment(s): kidney failure Mother Family Medical History: Cancer Additional Family Medical History / Comment(s): lung cancer Medications and Allergies Home Medications Medication Instructions Recorded Confirmed Type HYDROcodone/APAP 5-325MG [[place] 1 tab PO DAILY PRN 10/28/23 10/28/23 History 5-325] Levothyroxine Sodium [Synthroid] 75 mcg PO DAILY 10/28/23 10/28/23 History Pregabalin [Lyrica] 75 mg PO BID 10/28/23 10/28/23 History Sertraline [Zoloft] 25 mg PO DAILY 10/28/23 10/28/23 History amLODIPine [Norvasc] 10 mg PO HS 10/28/23 10/28/23 History Allergies Allergy/AdvReac Type Severity Reaction Status Date / Time No Known Allergies Allergy Verified 10/28/23 07:09 Physical Exam Vitals: Vital Signs Temp Pulse Pulse Resp BP BP Pulse Ox 10/28/23 07:46 97.8 F 66 17 155/69 95 10/28/23 05:29 60 14 132/57 93 L 10/28/23 04:12 60 17 128/57 92 L 10/28/23 01:59 98.1 F 76 16 128/65 93 L Intake and Output 10/27/23 10/28/23 10/28/23 22:59 06:59 14:59 Other: Weight 58.967 kg Results CBC & Chem 7: 10/28/23 02:10 10/28/23 02:10 Labs: Abnormal Lab Results - Last 24 Hours (Table) 10/28/23 10/28/23 Range/Units 02:10 02:10 Hgb 10.4 L (11.4-16.0) gm/dL MCH 24.9 L (25.0-35.0) pg MCHC 30.0 L (31.0-37.0) g/dL RDW 17.9 H (11.5-15.5) % Sodium 136 L (137-145) mmol/L BUN 19 H (7-17) mg/dL Glucose 106 H (74-99) mg/dL
[2023-10-28] MEDS: HYDROcodone/APAP 5-325MG 1 EACH TAB PO PRN (16:45)
--- NOTE | 2023-10-28 16:45 | CA ---
Dobutamine Stress Echocardiogram Report Tyesha Peterson Age: 82 Gender: F : 1940 Exam Date: 10/28/2023 13:20 Exam Location: [facility] Ordering Physician: Tra Corrales MD ([id number]) Referring Physician: ARACELI, Direct Support Specialist: Mayo Rees Technologist: Ht (in): 60 Wt (lb): 130 Procedure CPT: Indication: Chest Pain ICD-9 Codes: Rhythm: Patient History: Cardiac Medications: SEE CHART Medications in past 24 hours: Contrast: N/A Total Dose (mL): NA Stress Results Protocol: Dobutamine Peak Dose (???g/kg/min): 30 Duration (min:sec): Atropine:(mg) None Target HR: 117 Double Product: [id number] Resting HR: 67 Resting BP: 162 / 68 Peak HR: 121 Peak BP: 140 / 78 Max Predicted HR: 138 88 % Max Predicted HR Stress Summary: Patient received dobutamine infusion as per the protocol BP Response: Reason for Termination: Target HR Cardiac Symptoms: NO SYMPTOMS ECG Analysis Resting EKG: Normal sinus rhythm, normal ECG Stress EKG: No significant ST-T wave changes that are diagnostic for ischemia by ST segment analysis with dobutamine infusion Arrhythmia: There were no sustained arrhythmias or ectopic beats noted during the stress Echo Analysis Base Echo Analysis: There is normal global and segmental systolic function. There is no resting regional wall motion normality Low Echo Anaylsis: At low-dose dobutamine infusion, there is normal augmentation of global and segmental systolic function with no stress-induced regional wall motion abnormality Peak Echo Analysis: At peak-dose dobutamine infusion, there is normal augmentation of global and segmental systolic function with no stress-induced regional wall motion abnormality Recovery Echo: Normal segmental and global wall motion during recovery phase MEASUREMENTS (Male/Female) Normal Values CONCLUSIONS Overall normal dobutamine echo stress test Nonischemic ECG and echocardiographic response to dobutamine infusion Normal hemodynamic and clinical response to dobutamine infusion Dr Tra Corrales (Electronically Signed) Final Date: 28 October 2023 16:44
--- NOTE | 2023-10-28 17:06 | P.DS ---
Providers Date of admission: 10/28/23 03:53 Expected date of discharge: 10/28/23 Attending physician: Farshad Short Consults: 10/28/23 03:35 Consult Physician Urgent Consulting Provider: [facility] Consult Reason/Comments: chest pain Do you want consulting provider notified?: Yes, Notify in am Primary care physician: [facility] Course: Chief Complaint: Chest pain This is a pleasant 82-year-old patient who follows with Dr. Meeks. Chronic stable medical conditions include hypertension, hyperlipidemia, rheumatoid arthritis, hypothyroid urine incontinence, chronic back pain. Around 10:30 PM last night she developed some central chest pressure. Going to the back. [place] a bit tired. No shortness of breath. Lasted for 3 to 4 hours. She came to the ER. Was given aspirin. No pain this morning. No prior cardiac history. Normally uses a cane or a walker to get around. Dobutamine stress echocardiogram unremarkable. 2D echo shows EF of 55 to 60%. Left patient follow-up cardiology outpatient. Social history: . Does use a cane or a walker. No smoking. No alcohol. Physical examination: VITAL SIGNS 97.7, 70, 16, 145/68, 94% room air GENERAL: BMI 25.4, reclining bed awake. EYES: Pupils equal. Conjunctiva gustavo l. HEENT: External appearance of nose and ears normal, oral cavity grossly normal. NECK: JVD not raised; masses not palpable. HEART: First and second heart sounds are normal; no edema. LUNGS: Respiratory rate normal; clear to auscultation. ABDOMEN: Soft, nontender, liver spleen not palpable, no masses palpable. PSYCH: Alert and oriented x3; mood and affect gustavo l. MUSCULOSKELETAL:No Clubbing/cyanosis;muscles-grossly intact. OA NEUROLOGICAL: Cranial nerves grossly intact; no facial asymmetry, power and sensation grossly intact. LYMPHATICS: No lymph nodes palpable in the axilla and neck INVESTIGATIONS, reviewed in the clinical context: Dobutamine stress echocardiogram negative 2D echocardiogram: EF 55 to 60%. October 27: White count 7.7 hemoglobin 10.4 platelets 280 potassium 4.2 BUN 19 creatinine 0.82 Troponin I x 3 less than 0.012 lipase 195 EKG tracing personally reviewed by me-normal sinus rhythm. Chest x-ray film personally reviewed by me-unremarkable Assessment and plan: -Anterior chest wall pain. Cardiac risk factors include hypertension, age: Possibly musculoskeletal pain Troponins negative. Dobutamine stress echocardiogram negative Follow-up with Dr. Corrales outpatient -Hypothyroid Synthroid 75 mcg a day -Depression Zoloft 25 mg a day -Essential hypertension Amlodipine 10 mg nightly -Chronic arthritis [place] as needed -Full code Disposition: Home Past Medical History Past Medical History: Heart Failure, Hyperlipidemia, Hypertension, Pneumonia, Rheumatoid Arthritis (RA), Thyroid Disorder Additional Past Medical History / Comment(s): recent back sx(dec 2015) shortly after had post op inc infection- ecoli infection. , not taking meds for bp anymore,bronchitis,some incont of urine, back pain, pancreatitis History of Any Multi-Drug Resistant Organisms: None Reported Past Surgical History: Back Surgery, Cholecystectomy, Hysterectomy Additional Past Surgical History / Comment(s): colonoscopy,lt eye implant, d&c, nov 30 at [facility]-"has brackets and screws" l4-l5, thoracentesis, picc line since removed. Past Anesthesia/Blood Transfusion Reactions: No Reported Reaction Additional Past Anesthesia/Blood Transfusion Reaction / Comment(s): past blood trqansfusion-no reaction. Past Psychological History: Panic Disorder Smoking Status: Never smoker Past Alcohol Use History: None Reported Past Drug Use History: None Reported Plan - Discharge Summary Discharge Rx Participant: No New Discharge Prescriptions: No Action amLODIPine [Norvasc] 10 mg PO HS HYDROcodone/APAP 5-325MG [[place] 5-325] 1 tab PO DAILY PRN PRN Reason: Pain Sertraline [Zoloft] 25 mg PO DAILY Pregabalin [Lyrica] 75 mg PO BID Levothyroxine Sodium [Synthroid] 75 mcg PO DAILY Discharge Medication List HYDROcodone/APAP 5-325MG [[place] 5-325] 1 tab PO DAILY PRN 10/28/23 [History] Levothyroxine Sodium [Synthroid] 75 mcg PO DAILY 10/28/23 [History] Pregabalin [Lyrica] 75 mg PO BID 10/28/23 [History] Sertraline [Zoloft] 25 mg PO DAILY 10/28/23 [History] amLODIPine [Norvasc] 10 mg PO HS 10/28/23 [History] Follow up Appointment(s)/Referral(s): Arcadio Meeks DO [Primary Care Provider] - 1-2 days
[2023-10-28] MEDS ORDERED: amLODIPine 10 MG TAB PO SCH (21:00)
== END 2023-10-28 17:21 | disposition home or self-care (01) ==
LOC: EC 01:57 → 6NMEDSUR 03:53
PROVIDERS: ADMIT Hospitalist; ATTEND Hospitalist
DX: R07.89 Other chest pain (principal); I10 Essential (primary) hypertension; E03.9 Hypothyroidism, unspecified; F32.A Depression, unspecified; M19.90 Unspecified osteoarthritis, unspecified site; Z90.710 Acquired absence of both cervix and uterus; Z80.1 Family history of malignant neoplasm of trachea, bronchus and lung; Z79.899 Other long term (current) drug therapy; R32 Unspecified urinary incontinence; M54.50 Low back pain, unspecified; G89.29 Other chronic pain
CPT/HCPCS: 99285; 36415; 93005; 93306; 93351; 80053; 83690; 83735; 84484; 85025; 85610; 85730; 73080; 71046; G0378

== ENCOUNTER 2023-12-16 14:00 | Day surgery (SDC) | payer MEDICARE, BC ==
[2023-12-16] MEDS ORDERED: PROPOFOL 10 MG/ML 20 ML VIAL IV ONE (14:58)
[2023-12-16] MEDS ORDERED: LIDOCAINE HCL/PF 20 MG/ML 10 ML AMP ONE (14:58)
--- NOTE | 2023-12-23 15:55 | OP ---
OPERATIVE REPORT DATE OF SERVICE : 12/16/2023 REQUESTING PHYSICIAN: Dr. Meeks. BRIEF HISTORY: The patient is an 83-year-old pleasant white female scheduled for an upper endoscopy as a part of evaluation of epigastric pain, postprandial abdominal bloating, and heartburn of several years duration. Her symptoms lately have been progressively getting worse and hence scheduled for an upper endoscopy to evaluate further. PROCEDURE PERFORMED: Esophagogastroduodenoscopy with biopsy. PREOPERATIVE DIAGNOSIS: Epigastric pain/abdominal bloating and severe heartburn. ANESTHESIA: IV sedation per Anesthesia. DESCRIPTION OF PROCEDURE: After informed consent was obtained from the patient, she was brought into the endoscopy unit. IV conscious sedation was administered by Anesthesia and a continuous monitoring. Initially, the Olympus CF-180 video endoscope was inserted into the mouth and esophagus and intubated without any difficulty and was gradually advanced into the stomach and duodenum and carefully examined. Bulb and the second part of the duodenum appeared normal. The scope at this time was withdrawn into the stomach, adequately insufflated with air and upon careful examination, mucosa of the antrum had mild diffuse gastritis with multiple telangiectasias like areas noted and biopsies were done from this area. The body of the stomach appeared normal. On retroflexion, cardia, and fundus appeared normal. Scope was then withdrawn into the esophagus. The GE junction was located at 34 cm from the incisors. There was a small hiatal hernia noted. There was a long segment of Comer's esophagus extending from 28 to 33 cm from the incisors and multiple biopsies were done from the segment of Comer's esophagus. There was a 5 mm linear ulcer noted in the distal segment of Comer's esophagus, which was also biopsied. Rest of the esophagus appeared normal. The patient tolerated the procedure well. IMPRESSION: 1. Long segment Comer's esophagus extending from 28 to 34 cm from the incisors status post multiple biopsies. 2. 5 mm superficial ulcer in the distal segment of Comer's esophagus status post biopsy. 3. Small hiatal hernia. 4. Diffuse gastritis with telangiectasia like areas in the antrum of the stomach status post biopsy. RECOMMENDATIONS: Findings of this examination were discussed with the patient as well as the family. She was advised to follow up with the biopsy results. Started on omeprazole 20 mg twice daily and follow anti-reflux measures. If the biopsy confirms the presence of Comer's esophagus, recommend a repeat upper endoscopy in 2 to 3 years. MMODL / IJN: [id number] /
== END 2023-12-16 15:50 ==
LOC: ORWHC2ENDO 14:00
PROVIDERS: ATTEND Internal Medicine Gastroenterology
DX: K29.70 Gastritis, unspecified, without bleeding (principal); K44.9 Diaphragmatic hernia without obstruction or gangrene; K31.A0 Gastric intestinal metaplasia, unspecified; K22.70 Barrett's esophagus without dysplasia; I10 Essential (primary) hypertension; E07.9 Disorder of thyroid, unspecified; Z79.890 Hormone replacement therapy; Z79.899 Other long term (current) drug therapy
CPT/HCPCS: 43239; 88305; 88341; 88342